=== PATIENT | male | born 1955 | race Caucasian/White ===

== ENCOUNTER 2016-09-04 21:32 | Emergency (ER) | END 2016-09-05 04:37 | disposition home or self-care (01) | DX: J20.9 Acute bronchitis, unspecified (principal); F17.210 Nicotine dependence, cigarettes, uncomplicated; N30.00 Acute cystitis without hematuria ==

== ENCOUNTER 2016-09-20 19:13 | Emergency (ER) | payer OTHER ==
[~2016-09-20] VITALS: Ht 182.9 cm; Wt 84.0 kg
[~2016-09-20 19:13] MED LIST: ACET500C5 PO; ALBU8.5H3 INH; BACTDS PO; CEPH-443 PO; CETI10CA PO; CLOT30CR24 TOP; GUAI120S26 PO; LEVO750T25 PO
[2016-09-20 19:50] VITALS: Ht 182.9 cm; Wt 84.0 kg
[2016-09-20 22:16] LABS: ADD UMIC YES; URINE BILIRUBIN (Dip) 2+ (NEGATIVE); URINE BLOOD (Dip) 3+ (NEGATIVE); URINE GLUCOSE (Dip) NEGATIVE (NEGATIVE); URINE KETONES (Dip) TRACE (NEGATIVE); URINE LEUKOCYTE ESTERASE (Dip) 2+ (NEGATIVE); URINE NITRITE (Dip) NEGATIVE (NEGATIVE); URINE TOTAL PROTEIN (Dip) 4+ (NEGATIVE); URINE UROBILINOGEN (Dip) 2.0 E.U./dL (0.1-1.0)
[2016-09-20 22:18] LABS: URINE COLOR RED (YELLOW)
[2016-09-20 22:22] LABS: ICTOTEST NEGATIVE (NEGATIVE); URINE RBCS >200 /HPF (0)
[2016-09-20 22:52] LABS: BASOPHILS % 0.3 % (0.0-2.0); EOSINOPHILS # 0.1 10^3/ul (0.0-0.5); EOSINOPHILS % 2.4 % (0.0-7.0); HEMATOCRIT 34.9 % (42.0-52.0); HEMOGLOBIN 11.7 g/dl (14.0-18.0); LYMPHOCYTES # 2.1 10^3/ul (0.8-2.9); LYMPHOCYTES % 35.7 % (15.0-51.0); MEAN CORPUSCULAR HEMOGLOBIN 30.5 pg (29.0-33.0); MEAN CORPUSCULAR HGB CONC 33.6 g/dl (32.0-37.0); MEAN PLATELET VOLUME 8.5 fl (7.4-10.4); MONOCYTE # 0.4 10^3/ul (0.3-0.9); MONOCYTES % 6.9 % (0.0-11.0); NEUTROPHIL # 3.2 10^3/ul (1.6-7.5); NEUTROPHILS % 54.7 % (39.0-77.0); PLATELET COUNT 189 10^3/UL (140-440); RED BLOOD COUNT 3.84 10^6/ul (4.70-6.10); RED CELL DISTRIBUTION WIDTH 13.8 % (11.5-14.5); UNCORRECTED WBC 5.9 10^3/ul (4.8-10.8); WHITE BLOOD COUNT 5.9 10^3/ul (4.8-10.8)
[2016-09-20 22:53] LABS: CONDITION 1
[2016-09-20 22:59] LABS: ALBUMIN 3.8 g/dl (3.3-4.9); POTASSIUM 3.6 mmol/L (3.5-5.1)
[2016-09-20 23:01] LABS: BILIRUBIN,INDIRECT 0.2 mg/dl (0-1.1); BILIRUBIN,TOTAL 0.2 mg/dl (0.2-1.3); CREATININE 1.09 mg/dl (0.61-1.24)
[2016-09-20 23:02] LABS: ALBUMIN/GLOBULIN RATIO 0.86; TOTAL PROTEIN 8.2 g/dl (6.1-8.1)
--- NOTE | 2016-09-20 23:21 | RADRPT ---
PROCEDURE: CT Abdomen and Pelvis without contrast CLINICAL INDICATION: Flank pain, hematuria TECHNIQUE: Transaxial images were obtained through the abdomen and pelvis on a multi-slice scanner without the intravenous contrast administration. No oral contrast had previously been given. Sagit aruna and coronal re-formations were subsequently reconstructed. One or more of the following dose reduction techniques were used: - Automated exposure control. - Adjustment of the mA and/or kV according to patient size. - Use of iterative reconstruction technique. Radiation dose: CTDIvol = 12.05 mGy; DLP = 676.25 mGy-cm. COMPARISON: No prior studies are available for comparison. FINDINGS: Lung bases: The visualized lung bases appear unremarkable. Liver: Normal in size and in attenuation. There is no focal lesion. Gallbladder: The wall is not thickened. No radiopaque stones are identified. Bile ducts: The intra and extrahepatic bile ducts are normal in caliber. Pancreas: Appears normal with no mass or inflammation evident. Spleen: The spleen is borderline enlarged. Adrenals: Normal with no mass identified. Kidneys, ureters and bladder: A double-J right ureteral stent is seen to be in place. There is mode rate right hydronephrosis and proximal hydroureter around the stent to the level of the lumbosacral junction for the ureter more distally is not dilated. There are several right nephroliths including 1 measuring 4 mm within a superior pole karly and several 2 mm nephroliths within mid pole calyces with a 1 cm nephrolith within the inferior pole karly. Within the right renal pelvis there is a 1.6 cm stone. The left kidney demonstrates no hydronephrosis but there is a 6 mm nonobstructing nephro lith within the inferior pole karly. The left ureter appears normal. The bladder appears unremarka ble. Reproductive organs: The prostate is not enlarged. Stomach and bowel: The stomach is distended with food debris. Multiple non organized mildly fluid d istended segments of small bowel are identified. There is no evidence of bowel obstruction or infla mmation. Appendix: The vermiform appendix is not discretely identified. Peritoneum: No free intraperitoneal fluid or air is identified. Aorta: There is atherosclerotic vascular calcification but no abdominal aortic aneurysm is evident. IVC: Unremarkable. Lymph nodes: No pathologically enlarged nodes are identified. Osseous structures: Degenerative spine changes are noted. There is a large Schmorl's node extending into the superior endplate of a S1 with anterior disk bulging and anterior spondylosis at this leve l. IMPRESSION: 1. Despite the presence of a double-J right ureteral stent, there is moderate right hydronephrosis and proximal hydroureter to the level of the lumbosacral junction. There are several right nephroli ths described above and there is a 1.6 cm stone within the right renal pelvis. No stone is seen at the caliber change within the distal right ureter at the lumbosacral junction level. 2. There is no hydronephrosis or hydroureter on the left but there is a 6 mm nonobstructing nephrol ith within the inferior pole of the left kidney. 3. The stomach is distended with food debris. There is a mild ileus but no evidence of bowel obstr uction or inflammation. The vermiform appendix is not discretely identified. 4. Borderline splenomegaly. 5. There is a large Schmorl's node involving the superior endplate of S1 with an anterior disk bulg e and with anterior spondylosis at this level. There is more diffuse anterior spondylosis through t he remaining spine. Physician Elizabeth Date Time Electronically viewed and signed by Physician Elizabeth on 09/20/2016 23:21 /
[2016-09-20] MEDS ORDERED: ACETAMINOPHEN 500 MG TAB PO STA (23:27)
[2016-09-20] MEDS ORDERED: CIPR500T4 PO (23:32)
[2016-09-20] MEDS ORDERED: HYDR-906 PO (23:32)
--- NOTE | 2016-09-20 23:32 | ERD ---
ER Documentation Chief Complaint Date/Time DATE: 09/20/16 TIME: 23:28 Chief Complaint blood in urine, vomiting , lower abd pain HPI This is a 61-year-old male presents to the emergency room for evaluation of blood in urine, and lower abdominal pain which he localizes to the right portion of his abdomen. The patient states that he has had some cramping and noticed dark blood for the past 5 days. He states that he was seen in a different hospital, was given an unknown antibiotic and was discharged. He states that he lost his prescription and came to the ER today for evaluation. ROS All systems reviewed and are negative except as per history of present illness. Medications Home Meds Discontinued Scripts Albuterol Sulfate* (Proair HFA*) 8.5 Gm Hfa.aer.ad, 2 PUFF INH Q4H Y for WHEEZING AND SOB, #1 INHALER Prov:MICHAELA PIERRE NP 09/05/16 Cetirizine Hcl* (Zyrtec*) 10 Mg Capsule, 10 MG PO DAILY, #30 TAB.CHEW Prov:MICHAELA PIERRE NP 09/05/16 Dugzxbfrlmj-J-Ksnrrdlnnm Hb* (Guaifenesin* DM Syrup) 120 Ml Syrup, 10 ML PO Q4H Y for COUGH, #120 ML Prov:MICHAELA PIERRE NP 09/05/16 Levofloxacin* (Levaquin*) 750 Mg Tablet, 750 MG PO DAILY for 5 Days, TAB Prov:MICHAELA PIERRE NP 09/05/16 Clotrimazole* (Clotrimazole* AF) 1% - 30 Gm Cream.gm., 1 APPLIC TOP BID for 7 Days, TUB Prov:MICHAELA PIERRE NP 02/15/16 Acetaminophen* (Tylophen*) 500 Mg Capsule, 1 CAP PO Q6H Y for PAIN AND OR ELEVATED TEMP, #20 CAP Prov:MICHAELA PIERRE NP 02/15/16 Sulfamethoxazole-Trimethoprim* (Bactrim* DS) 800-160 Mg Tab, 1 TAB PO BID for 10 Days, TAB Prov:MICHAELA PIERRE NP 02/15/16 Cephalexin* (Keflex*) 500 Mg Capsule, 500 MG PO QID for 10 Days, CAP Prov:MICHAELA PIERREJulita MARTIN 02/15/16 Allergies Allergies: Coded Allergies: No Known Allergy (Unverified , 09/20/16) PMhx/Soc History of Surgery: Yes (RIGHT FOOT) Anesthesia Reaction: No Hx Neurological Disorder: No Hx Respiratory Disorders: No Hx Cardiac Disorders: No Hx Psychiatric Problems: No Hx Miscellaneous Medical Probl: Yes (HIV) Hx Alcohol Use: No Hx Substance Use: Yes (HEROIN/METHADONE) Hx Tobacco Use: Yes Smoking Status: Current every day smoker Physical Exam Vitals Vital Signs Date Time Temp Pulse Resp B/P Pulse Ox O2 Delivery O2 Flow Rate FiO2 09/20/16 19:50 98.3 94 20 144/87 98 Physical Exam Const: Disheveled appearance, no acute distress Head: Atraumatic Eyes: Normal Conjunctiva ENT: Normal External Ears, Nose and Mouth. Neck: Full range of motion..~ No meningismus. Resp: Clear to auscultation bilaterally Cardio: Regular rate and rhythm, no murmurs Abd: Right-sided CVAT, soft, non tender, non distended. Normal bowel sounds Skin: No petechiae or rashes Back: No midline or flank tenderness Ext: No cyanosis, or edema Neur: Awake and alert Psych: Normal Mood and Affect Result Diagram: 09/20/16223809/20/162238 Results 24 hrs Laboratory Tests Test 09/20/16 21:42 09/20/16 22:39 Urine Bilirubin 2+ Urine Clarity TURBID Urine Color RED Urine Glucose NEGATIVE% Urine Hemoglobin 3+ Urine Ictotest NEGATIVE Urine Ketones TRACE Urine Leukocyte Esterase 2+ Urine Microscopic RBC >200/HPF Urine Microscopic WBC 5-10/HPF Urine Nitrite NEGATIVE Urine Specific [place] 1.020 Urine Total Protein 4+ Urine Urobilinogen 2.0 E.U./dL Urine pH 6.5 Alanine Aminotransferase (ALT/SGPT) 31IU/L Albumin 3.8g/dl Albumin/Globulin Ratio 0.86 Alkaline Phosphatase 106IU/L Anion Gap 19 Aspartate Amino Transf (AST/SGOT) 45IU/L Basophils # 0.010^3/ul Basophils % 0.3% Blood Urea Nitrogen 17mg/dl Calcium Level 9.0mg/dl Carbon Dioxide Level 22mmol/L Chloride Level 105mmol/L Creatinine 1.09mg/dl Direct Bilirubin 0.00mg/dl Eosinophils # 0.110^3/ul Eosinophils % 2.4% Globulin 4.40g/dl Glucose Level 90mg/dl Hematocrit 34.9% Hemoglobin 11.7g/dl Indirect Bilirubin 0.2mg/dl Lipase 40U/L Lymphocytes # 2.110^3/ul Lymphocytes % 35.7% Mean Corpuscular Hemoglobin 30.5pg Mean Corpuscular Hemoglobin Concent 33.6g/dl Mean Corpuscular Volume 91.0fl Mean Platelet Volume 8.5fl Monocytes # 0.410^3/ul Monocytes % 6.9% Neutrophils # 3.210^3/ul Neutrophils % 54.7% Nucleated Red Blood Cells # 0.010^3/ul Nucleated Red Blood Cells % 0.0/100WBC Platelet Count 02629^3/UL Potassium Level 3.6mmol/L Red Blood Count 3.8410^6/ul Red Cell Distribution Width 13.8% Sodium Level 142mmol/L Total Bilirubin 0.2mg/dl Total Protein 8.2g/dl White Blood Count 5.910^3/ul Procedures/MDM CT abdomen pelvis without: 1. Despite the presence of a double-J right ureteral stent, there is moderate right hydronephrosis and proximal hydroureter to the level of the lumbosacral junction. There are several right nephroliths described above and there is a 1.6 cm stone within the right renal pelvis. No stone is seen at the caliber change within the distal right ureter at the lumbosacral junction level. 2. There is no hydronephrosis or hydroureter on the left but there is a 6 mm nonobstructing nephrolith within the inferior pole of the left kidney. 3. The stomach is distended with food debris. There is a mild ileus but no evidence of bowel obstruction or inflammation. The vermiform appendix is not discretely identified. 4. Borderline splenomegaly. 5. There is a large Schmorl's node involving the superior endplate of S1 with an anterior disk bulge and with anterior spondylosis at this level. There is more diffuse anterior spondylosis through the remaining spine This 61-year-old male presents to the ER for evaluation of abdominal pain, blood in his urine. When I evaluated him he did have mild pain on the right flank. Did obtain lab work and a urinalysis which does show gross hematuria. CT of the abdomen pelvis was obtained and it does show that the patient has a double-J ureteral stent with moderate hydronephrosis and a 1.6 cm stone in the right renal pelvis. I asked this patient about the stent and he stated that he "forgot to tell me he has one". The patient states that he is following up with a urologist at [facility], Dr. Jesus and is scheduled for possible stent removal in 2 weeks. The patient has no elevations in his creatinine. He is urinating without difficulty. He will be discharged home with a prescription for ciprofloxacin, and [place] for breakthrough pain and urology referral in case she is unable to see the urologist at [facility] Diagnosis: Primary Impression: Right flank pain, chronic Additional Impressions: Hematuria Hydronephrosis Normocytic anemia Condition: Stable ROGER CONTEH DO Sep 20, 2016 23:31
[2016-09-20] MEDS ORDERED: ONDA4TAB8 PO (23:50)
[2016-09-20 23:53] VITALS: BP 148/82; PULSE 79; RESP 16; TEMP 98.9
[2016-09-21] MEDS ORDERED: ONDA4TAB8 PO (22:58)
[2016-09-21] MEDS ORDERED: OXYC-279 PO (22:58)
[2016-09-21] MEDS ORDERED: ZOLP5TAB PO (22:58)
== END 2016-09-20 23:55 | disposition home or self-care (01) ==
LOC: E/R 19:13
DX: R10.31 Right lower quadrant pain (principal); R31.9 Hematuria, unspecified; N13.30 Unspecified hydronephrosis; D64.9 Anemia, unspecified; F17.210 Nicotine dependence, cigarettes, uncomplicated
CPT/HCPCS: 74176; 80053; 81001; 83690; 85025; Z7502; Z7610; 81003

== ENCOUNTER 2016-09-21 18:15 | Emergency (ER) | payer OTHER ==
[~2016-09-21] VITALS: Ht 182.9 cm; Wt 80.0 kg
[~2016-09-21 18:15] MED LIST changes: -ACET500C5 PO; -ALBU8.5H3 INH; -BACTDS PO; -CEPH-443 PO; -CETI10CA PO; +CIPR500T4 PO; -CLOT30CR24 TOP; -GUAI120S26 PO; +HYDR-906 PO; -LEVO750T25 PO; +ONDA4TAB8 PO
[2016-09-21 18:20] VITALS: Ht 182.9 cm; Wt 80.0 kg
[2016-09-21] MEDS ORDERED: ONDANSETRON 4 MG INJ IV STA ×2 (20:48→20:50)
[2016-09-21] MEDS ORDERED: SOD CHLORIDE 0.9% 1,000 ML IV ONE (21:00)
[2016-09-21] MEDS ORDERED: morphine 10 MG INJ IV ONE (21:00)
--- NOTE | 2016-09-21 21:20 | ERD ---
ER Documentation Chief Complaint Date/Time DATE: 09/21/16 TIME: 21:18 Chief Complaint Complains of blood in the urine and pain when urinating HPI This is an 61-year-old male that presents to the ER with flank pain and blood in his urine. Patient was seen last night and was diagnosed with kidney stones. Patient has a history of kidney stones. Patient states the pain is severe and constant. He tried [place] that was given to him yesterday however does not work. Patient currently takes methadone for breakthrough chronic pain. Patient denies any fevers or chills. He does admit to nausea and vomiting. Vomiting is nonbilious nonbloody. ROS 12 point review of systems was done, all negative except per HPI. Medications Home Meds Active Scripts Ondansetron Hcl* (Zofran*) 4 Mg Tablet, 4 MG PO Q6H for NAUSEA AND/OR VOMITING, #30 TAB Prov:RAZ SHARP 09/21/16 Zolpidem Tartrate* (Ambien*) 5 Mg Tablet, 5 MG PO HS Y for INSOMNIA, #10 TAB Prov:RAZ SHARP 09/21/16 Oxycodone HCl/Acetaminophen (Percocet 5-325 mg Tablet) 1 Each Tablet, 1 EACH PO Q6, #10 TAB Prov:RAZ SHARP 09/21/16 Ondansetron Hcl* (Zofran*) 4 Mg Tablet, 4 MG PO Q8H Y for NAUSEA AND/OR VOMITING , #15 TAB Prov:ROGER CONTEH DO 09/20/16 Hydrocodone/Acetaminophen ([place] 5-325 Tablet) 1 Each Tablet, 1 EACH PO Q8, #10 TAB Prov:ROGER CONTEH DO 09/20/16 Ciprofloxacin Hcl* (Ciprofloxacin Hcl*) 500 Mg Tablet, 500 MG PO BID, #14 TAB Prov:ROGER CONTEH DO 09/20/16 Discontinued Scripts Albuterol Sulfate* (Proair HFA*) 8.5 Gm Hfa.aer.ad, 2 PUFF INH Q4H Y for WHEEZING AND SOB, #1 INHALER Prov:MICHAELA PIERRE NURSING CARE ATTENDANT 09/05/16 Cetirizine Hcl* (Zyrtec*) 10 Mg Capsule, 10 MG PO DAILY, #30 TAB.CHEW Prov:MICHAELA PIERRE NP 09/05/16 Flsxeourwrd-W-Memwylqzvr Hb* (Guaifenesin* DM Syrup) 120 Ml Syrup, 10 ML PO Q4H Y for COUGH, #120 ML Prov:MICHAELA PIERRE NP 09/05/16 Levofloxacin* (Levaquin*) 750 Mg Tablet, 750 MG PO DAILY for 5 Days, TAB Prov:MICHAELA PIERRE NP 09/05/16 Clotrimazole* (Clotrimazole* AF) 1% - 30 Gm Cream.gm., 1 APPLIC TOP BID for 7 Days, TUB Prov:MICHAELA PIERRE NP 02/15/16 Acetaminophen* (Tylophen*) 500 Mg Capsule, 1 CAP PO Q6H Y for PAIN AND OR ELEVATED TEMP, #20 CAP Prov:MICHAELA PIERRE NP 02/15/16 Sulfamethoxazole-Trimethoprim* (Bactrim* DS) 800-160 Mg Tab, 1 TAB PO BID for 10 Days, TAB Prov:MICHAELA PIERRE NP 02/15/16 Cephalexin* (Keflex*) 500 Mg Capsule, 500 MG PO QID for 10 Days, CAP Prov:MICHAELA PIERRE NP 02/15/16 Allergies Allergies: Coded Allergies: No Known Allergy (Unverified , 09/20/16) PMhx/Soc History of Surgery: Yes (RIGHT FOOT) Anesthesia Reaction: No Hx Neurological Disorder: No Hx Respiratory Disorders: No Hx Cardiac Disorders: No Hx Psychiatric Problems: No Hx Miscellaneous Medical Probl: Yes (HIV) Hx Alcohol Use: No Hx Substance Use: Yes (HEROIN/METHADONE) Hx Tobacco Use: Yes Smoking Status: Current every day smoker Physical Exam Vitals Vital Signs Date Time Temp Pulse Resp B/P Pulse Ox O2 Delivery O2 Flow Rate FiO2 09/21/16 18:20 98.3 92 20 129/85 98 Physical Exam GENERAL: The patient is well developed and appropriate for usual state of health , in no apparent distress. HEENT: Atraumatic. CHEST: Clear to auscultation bilaterally. There are no rales, wheezes or rhonchi. HEART: Regular rate and rhythm. No murmurs, clicks, rubs or gallops. ABDOMEN: Soft, nontender and nondistended. Good bowel sounds. No rebound or guarding. No gross peritonitis. No gross organomegaly or masses. No Ayon sign or McBurney point tenderness. BACK: No midline or flank tenderness. EXTREMITIES: Full range of motion. Grossly neurovascularly intact. NEURO: Alert and oriented. SKIN: The skin is warm and dry. Result Diagram: 09/21/16222909/21/162119 Results 24 hrs Laboratory Tests Test 09/21/16 21:20 09/21/16 21:38 09/21/16 22:30 Alanine Aminotransferase (ALT/SGPT) 34IU/L Albumin 4.0g/dl Albumin/Globulin Ratio 0.88 Alkaline Phosphatase 112IU/L Anion Gap 18 Aspartate Amino Transf (AST/SGOT) 51IU/L Blood Urea Nitrogen 15mg/dl Calcium Level 9.4mg/dl Carbon Dioxide Level 22mmol/L Chloride Level 104mmol/L Creatinine 1.25mg/dl Direct Bilirubin 0.00mg/dl Globulin 4.50g/dl Glucose Level 93mg/dl Indirect Bilirubin 0.2mg/dl Potassium Level 3.9mmol/L Sodium Level 140mmol/L Total Bilirubin 0.2mg/dl Total Protein 8.5g/dl Urine Bacteria FEW Urine Bilirubin NEGATIVE Urine Clarity BLOODY Urine Color RED Urine Glucose NEGATIVE% Urine Hemoglobin 3+ Urine Ketones TRACE Urine Leukocyte Esterase 1+ Urine Microscopic RBC >200/HPF Urine Microscopic WBC >50/HPF Urine Nitrite NEGATIVE Urine Specific [place] 1.025 Urine Total Protein 2+ Urine Urobilinogen 1.0 E.U./dL Urine pH 6.0 Basophils # 0.010^3/ul Basophils % 0.2% Eosinophils # 0.210^3/ul Eosinophils % 4.7% Hematocrit 31.8% Hemoglobin 10.9g/dl Lymphocytes # 1.510^3/ul Lymphocytes % 35.5% Mean Corpuscular Hemoglobin 30.6pg Mean Corpuscular Hemoglobin Concent 34.3g/dl Mean Corpuscular Volume 89.3fl Mean Platelet Volume 10.1fl Monocytes # 0.510^3/ul Monocytes % 11.5% Neutrophils # 1.910^3/ul Neutrophils % 47.6% Nucleated Red Blood Cells # 0.010^3/ul Nucleated Red Blood Cells % 0.0/100WBC Platelet Count 61690^3/UL Red Blood Count 3.5610^6/ul Red Cell Distribution Width 13.3% White Blood Count 4.110^3/ul Current Medications Medications (Trade) Dose Ordered Sig/Singh Route PRN Reason Start Time Stop Time Status Last Admin Dose Admin Morphine Sulfate (morphine) 6 mg ONCE ONCE IV 09/21/16 21:00 09/21/16 21:01 DC 09/21/16 21:32 Ondansetron HCl 4 mg 4 mg ONCE STAT IV 09/21/16 20:48 09/21/16 20:51 DC 09/21/16 21:32 Sodium Chloride (NS) 1,000 ml @ 1,000 mls/hr Q1H ONCE IV 09/21/16 21:00 09/21/16 21:59 DC 09/21/16 21:32 Ondansetron HCl (Zofran Inj) 4 mg ONCE STAT IV 09/21/16 20:50 09/21/16 20:51 DC Ciprofloxacin (Cipro) 500 mg ONCE ONCE PO 09/21/16 23:30 09/21/16 23:31 Procedures/MDM This is a 61-year-old male that presents to the ER with blood in his urine. Patient was here yesterday and was diagnosed with kidney stones. At this time I did not feel that CT scan was necessary as CT scan was done yesterday. Patient does not have an elevation in his white blood cell count he is afebrile and well-appearing. Patient has not had any fevers or chills at home. I doubt septic or obstructive stone. Patient was given a dose of Cipro here in the ER, he was told to fill his medication to start his Cipro for his urinary tract infection. I discussed his case with Dr. Stallings and she agrees with my medical decision making. Patient at this time is well-appearing. He needs to start his antibiotics. He also needs to follow-up with his urologist. Patient was counseled on the importance of taking medication safely. I told him to discontinue [place] if he decides to take Percocet. Also advised him to not take Ambien and Percocet together as it can cause extreme dizziness and I did not want him to fall or injure himself. Patient verbalizes understanding and and agrees with plan. Patient is to follow-up with his primary care doctor within 1 -2 days or return to ER sooner if symptoms worsen. Departure Diagnosis: Primary Impression: Kidney stones Condition: Stable RAZ SHARP Sep 21, 2016 21:20
[2016-09-21 21:49] LABS: ADD SCAN DIFF NO
[2016-09-21 22:02] LABS: ADD UMIC YES; URINE BILIRUBIN (Dip) NEGATIVE (NEGATIVE); URINE BLOOD (Dip) 3+ (NEGATIVE); URINE GLUCOSE (Dip) NEGATIVE (NEGATIVE); URINE KETONES (Dip) TRACE (NEGATIVE); URINE LEUKOCYTE ESTERASE (Dip) 1+ (NEGATIVE); URINE NITRITE (Dip) NEGATIVE (NEGATIVE); URINE TOTAL PROTEIN (Dip) 2+ (NEGATIVE); URINE UROBILINOGEN (Dip) 1.0 E.U./dL (0.1-1.0)
[2016-09-21 22:02] LABS: POTASSIUM 3.9 mmol/L (3.5-5.1)
[2016-09-21 22:04] LABS: ALBUMIN/GLOBULIN RATIO 0.88; BILIRUBIN,INDIRECT 0.2 mg/dl (0-1.1); BILIRUBIN,TOTAL 0.2 mg/dl (0.2-1.3); CREATININE 1.25 mg/dl (0.61-1.24); TOTAL PROTEIN 8.5 g/dl (6.1-8.1)
[2016-09-21 22:05] LABS: CALCIUM 9.4 mg/dl (8.4-10.2)
[2016-09-21 22:06] LABS: URINE COLOR RED (YELLOW)
[2016-09-21 22:07] LABS: BACTERIA,URINE FEW; URINE RBCS >200 /HPF (0)
[2016-09-21 22:43] LABS: BASOPHILS % 0.2 % (0.0-2.0); EOSINOPHILS # 0.2 10^3/ul (0.0-0.5); EOSINOPHILS % 4.7 % (0.0-7.0); HEMATOCRIT 31.8 % (42.0-52.0); HEMOGLOBIN 10.9 g/dl (14.0-18.0); LYMPHOCYTES # 1.5 10^3/ul (0.8-2.9); LYMPHOCYTES % 35.5 % (15.0-51.0); MEAN CORPUSCULAR HEMOGLOBIN 30.6 pg (29.0-33.0); MEAN CORPUSCULAR HGB CONC 34.3 g/dl (32.0-37.0); MEAN CORPUSCULAR VOLUME 89.3 fl (82.0-101.0); MEAN PLATELET VOLUME 10.1 fl (7.4-10.4); MONOCYTE # 0.5 10^3/ul (0.3-0.9); MONOCYTES % 11.5 % (0.0-11.0); NEUTROPHIL # 1.9 10^3/ul (1.6-7.5); NEUTROPHILS % 47.6 % (39.0-77.0); PLATELET COUNT 162 10^3/UL (140-415); RED BLOOD COUNT 3.56 10^6/ul (4.70-6.10); RED CELL DISTRIBUTION WIDTH 13.3 % (11.5-14.5); WHITE BLOOD COUNT 4.1 10^3/ul (4.8-10.8)
[2016-09-21] MEDS ORDERED: ONDA4TAB8 PO (22:58)
[2016-09-21] MEDS ORDERED: OXYC-279 PO (22:58)
[2016-09-21] MEDS ORDERED: ZOLP5TAB PO (22:58)
[2016-09-21 23:27] VITALS: BP 129/72; PULSE 75; RESP 18; TEMP 98.1
[2016-09-21] MEDS ORDERED: CIPROFLOXACIN 500 MG TAB PO ONE (23:30)
[2016-09-22] MEDS ORDERED: ONDA4TAB14 PO (22:14)
[2016-09-22] MEDS ORDERED: HYDR-902 PO (22:14)
== END 2016-09-21 23:27 | disposition home or self-care (01) ==
LOC: FTE 18:15
DX: N20.0 Calculus of kidney (principal); R11.2 Nausea with vomiting, unspecified; F17.210 Nicotine dependence, cigarettes, uncomplicated
CPT/HCPCS: 36415; 80053; 81001; 85025; 96361; 96374; 96375; J2270; J2405; J7030; Z7502; Z7610; 81003

== ENCOUNTER 2016-09-22 17:36 | Emergency (ER) | payer OTHER ==
[~2016-09-22] VITALS: Wt 80.5 kg
[~2016-09-22 17:36] MED LIST changes: +OXYC-279 PO; +ZOLP5TAB PO
[2016-09-22] MEDS ORDERED: SOD CHLORIDE 0.9% 1,000 ML IV STA (17:52)
[2016-09-22] MEDS ORDERED: ONDANSETRON 4 MG INJ IV STA (17:52)
[2016-09-22] MEDS ORDERED: HYDROmorphONE 1 MG/ML SYG IV STA (17:52)
--- NOTE | 2016-09-22 18:02 | ERA ---
ER Documentation Chief Complaint Date/Time DATE: 09/22/16 TIME: 18:00 Chief Complaint FLANK PAIN X 1 WEEK HPI Very pleasant 61-year-old male who presents with right flank pain for approximately 1 week. He describes now constant, severe flank pain that is nonradiating. The patient has recently been diagnosed with kidney stones. His symptoms are not improved. He presents now for the third day in a row for persistent pain. He denies any fevers or chills. No chest pain, no right lower quadrant abdominal pain. ROS All systems reviewed and are negative except as per history of present illness. Medications Home Meds Active Scripts Ondansetron (Ondansetron Odt) 4 Mg Tab.rapdis, 4 MG PO Q6H Y for NAUSEA AND/OR VOMITING, #10 TAB Prov:SWATI SINGH MD 09/22/16 Hydrocodone/Acetaminophen ([place] 10-325 Tablet) 1 Each Tablet, 1 TAB PO Q6H Y for PAIN, #12 TAB Prov:SWATI SINGH MD 09/22/16 Ondansetron Hcl* (Zofran*) 4 Mg Tablet, 4 MG PO Q6H for NAUSEA AND/OR VOMITING, #30 TAB Prov:RAZ SHARP 09/21/16 Zolpidem Tartrate* (Ambien*) 5 Mg Tablet, 5 MG PO HS Y for INSOMNIA, #10 TAB Prov:RAZ SHARP 09/21/16 Oxycodone HCl/Acetaminophen (Percocet 5-325 mg Tablet) 1 Each Tablet, 1 EACH PO Q6, #10 TAB Prov:RAZ SHARP 09/21/16 Hydrocodone/Acetaminophen ([place] 5-325 Tablet) 1 Each Tablet, 1 EACH PO Q8, #10 TAB Prov:ROGER CONTEH DO 09/20/16 Ciprofloxacin Hcl* (Ciprofloxacin Hcl*) 500 Mg Tablet, 500 MG PO BID, #14 TAB Prov:ROGER CONTEH DO 09/20/16 Discontinued Scripts Ondansetron Hcl* (Zofran*) 4 Mg Tablet, 4 MG PO Q8H Y for NAUSEA AND/OR VOMITING , #15 TAB Prov:ROGER CONTEH DO 09/20/16 Albuterol Sulfate* (Proair HFA*) 8.5 Gm Hfa.aer.ad, 2 PUFF INH Q4H Y for WHEEZING AND SOB, #1 INHALER Prov:MICHAELA PIERRE NP 09/05/16 Cetirizine Hcl* (Zyrtec*) 10 Mg Capsule, 10 MG PO DAILY, #30 TAB.CHEW Prov:MICHAELA PIERRE [employer] 09/05/16 Bfvwomeoskf-A-Dzoriukemc Hb* (Guaifenesin* DM Syrup) 120 Ml Syrup, 10 ML PO Q4H Y for COUGH, #120 ML Prov:MICHAELA PIERRE [employer] 09/05/16 Levofloxacin* (Levaquin*) 750 Mg Tablet, 750 MG PO DAILY for 5 Days, TAB Prov:MICHAELA PIERRE [employer]CH[employer] 09/05/16 Clotrimazole* (Clotrimazole* AF) 1% - 30 Gm Cream.gm., 1 APPLIC TOP BID for 7 Days, TUB Prov:MICHAELA PIERRE NP 02/15/16 Acetaminophen* (Tylophen*) 500 Mg Capsule, 1 CAP PO Q6H Y for PAIN AND OR ELEVATED TEMP, #20 CAP Prov:MICHAELA PIERRE NP 02/15/16 Sulfamethoxazole-Trimethoprim* (Bactrim* DS) 800-160 Mg Tab, 1 TAB PO BID for 10 Days, TAB Prov:MICHAELA PIERRE NP 02/15/16 Cephalexin* (Keflex*) 500 Mg Capsule, 500 MG PO QID for 10 Days, CAP Prov:MICHAELA PIERRE NP 02/15/16 Allergies Allergies: Coded Allergies: No Known Allergy (Unverified , 09/22/16) PMhx/Soc History of Surgery: Yes (RIGHT FOOT) Anesthesia Reaction: No Hx Neurological Disorder: No Hx Respiratory Disorders: No Hx Cardiac Disorders: No Hx Psychiatric Problems: No Hx Miscellaneous Medical Probl: Yes (HIV) Hx Alcohol Use: No Hx Substance Use: Yes (HEROIN/METHADONE) Hx Tobacco Use: Yes FmHx Family History: No diabetes Physical Exam Vitals Vital Signs Date Time Temp Pulse Resp B/P Pulse Ox O2 Delivery O2 Flow Rate FiO2 09/22/16 20:10 102 18 119/60 100 Room Air 09/22/16 19:45 87 20 127/76 100 Room Air 09/22/16 17:40 98.0 88 18 144/89 99 Physical Exam General: Well developed, well nourished, uncomfortable Head: Normocephalic, atraumatic. Eyes: Pupils equally reactive, EOM intact ENT: Moist mucous membranes Neck: Supple, no lymphadenopathy Respiratory: Lungs clear bilaterally, no distress Cardiovascular: RRR, no murmurs, rubs, or gallops Abdominal: Soft, non-tender, non-distended, no peritoneal signs : Deferred Back: Mild CVA tenderness to the right MSK: No edema, no unilateral swelling, 5/5 strength Neurologic: Alert and oriented, moving all extremities, normal speech, no focal weakness, no cerebellar signs Skin: No rash Psych: Normal mood Result Diagram: 09/22/16182109/22/161821 Results 24 hrs Laboratory Tests Test 09/22/16 18:22 09/22/16 19:30 Activated Partial Thromboplast Time 27.0Sec Anion Gap 20 Basophils # 0.010^3/ul Basophils % 0.2% Blood Urea Nitrogen 15mg/dl Calcium Level 9.2mg/dl Carbon Dioxide Level 21mmol/L Chloride Level 106mmol/L Creatinine 1.15mg/dl Eosinophils # 0.210^3/ul Eosinophils % 3.6% Glucose Level 91mg/dl Hematocrit 35.0% Hemoglobin 11.7g/dl INR International Normalized Ratio 1.05 Lymphocytes # 1.310^3/ul Lymphocytes % 29.8% Mean Corpuscular Hemoglobin 30.3pg Mean Corpuscular Hemoglobin Concent 33.4g/dl Mean Corpuscular Volume 90.7fl Mean Platelet Volume 10.5fl Monocytes # 0.410^3/ul Monocytes % 9.8% Neutrophils # 2.410^3/ul Neutrophils % 56.1% Nucleated Red Blood Cells # 0.010^3/ul Nucleated Red Blood Cells % 0.0/100WBC Platelet Count 63580^3/UL Potassium Level 3.6mmol/L Prothrombin Time 13.7Sec Prothrombin Time Ratio 1.1 Red Blood Count 3.8610^6/ul Red Cell Distribution Width 13.8% Sodium Level 143mmol/L White Blood Count 4.210^3/ul Urine Bacteria FEW Urine Bilirubin 1+ Urine Clarity BLOODY Urine Color RED Urine Glucose NEGATIVE% Urine Hemoglobin 3+ Urine Ictotest NEGATIVE Urine Ketones TRACE Urine Leukocyte Esterase 2+ Urine Microscopic RBC >200/HPF Urine Microscopic WBC 10-25/HPF Urine Nitrite NEGATIVE Urine Specific [place] 1.025 Urine Total Protein 2+ Urine Urobilinogen 1.0 E.U./dL Urine pH 5.5 Current Medications Medications (Trade) Dose Ordered Sig/Singh Route PRN Reason Start Time Stop Time Status Last Admin Dose Admin Sodium Chloride (NS) 1,000 ml @ 1,000 mls/hr Q1H STAT IV 09/22/16 17:52 09/22/16 18:51 DC 09/22/16 19:51 Hydromorphone HCl (Dilaudid) 1 mg ONCE STAT IV 09/22/16 17:52 09/22/16 17:53 DC 09/22/16 19:55 Ondansetron HCl (Zofran Inj) 4 mg ONCE STAT IV 09/22/16 17:52 09/22/16 17:53 DC 09/22/16 19:55 Procedures/MDM EKG, MONITORS, & DIAGNOSTIC IMAGING: CT from 2 days ago IMPRESSION: 1. Despite the presence of a double-J right ureteral stent, there is moderate right hydronephrosis and proximal hydroureter to the level of the lumbosacral junction. There are several right nephroliths described above and there is a 1.6 cm stone within the right renal pelvis. No stone is seen at the caliber change within the distal right ureter at the lumbosacral junction level. 2. There is no hydronephrosis or hydroureter on the left but there is a 6 mm nonobstructing nephrolith within the inferior pole of the left kidney. 3. The stomach is distended with food debris. There is a mild ileus but no evidence of bowel obstruction or inflammation. The vermiform appendix is not discretely identified. 4. Borderline splenomegaly. 5. There is a large Schmorl's node involving the superior endplate of S1 with an anterior disk bulge and with anterior spondylosis at this level. There is more diffuse anterior spondylosis through the remaining spine. LAB INTERPRETATION: No significant leukocytosis. No evidence of renal failure. MEDICAL DECISION MAKING: The patient is evidence of hydronephrosis secondary to a blocked ureteral stent. The patient will likely require stent retrieval, replacement of stent and/or lithotripsy. The patient did have a possible UTI but no urine culture was sent. No fever no leukocytosis therefore less likely. The patient is currently taking Cipro. The patient will benefit from pain control, urology consultation in anticipation for inpatient hospitalization. ER COURSE: The patient's pain is improving. I was able to speak to my urologist, we reviewed the diagnostic imaging and the patient's presentation. He feels that the patient requires a complex surgery and cannot provide this surgical intervention here at my hospital. He recommends transfer. I have attempted multiple sites of transfer including [place], where the patient had his surgery. We also reached out to [facility] unfortunately there is no availability at [facility], [facility]. I will also try [facility]. I will continue to try and find placement for this patient. He was informed that this may take several hours if not days. We are still unable to find placement for this patient. He has become frustrated which I understand. He states that his primary care physician is arranging for her urologist but not for another 6 days. I do not believe that the patient requires emergent surgery however I recommended staying to assist with transfer. The patient would like to leave the emergency room. I stated understanding. I provided outpatient referral information to urology as well as recommended that he may benefit from following up back at [place] as this is where he had his surgery. The patient states understanding and is asking for refill of [place] which seems reasonable. The patient will be discharged from the emergency room I kept the patient and/or family informed of laboratory and diagnostic imaging results throughout the emergency room course. DISPOSITION PLAN: We discussed follow up with the patient's primary care doctor within 24 to 48 hours as needed. We also discussed return to the emergency room for worsening symptoms or worsening condition. Discharge Medications: [place], Zofran We discussed the use of narcotics including avoidance of operating heavy machinery and driving as well as its addictive properties. Departure Diagnosis: Primary Impression: Hydronephrosis Qualified Code: N13.2 - Hydronephrosis with urinary obstruction due to renal calculus Additional Impressions: Ureteral stent retained Ureterolithiasis Condition: Stable SWATI SINGH MD Sep 22, 2016 18:02
[2016-09-22 18:29] LABS: ADD SCAN DIFF NO
[2016-09-22 18:40] LABS: POTASSIUM 3.6 mmol/L (3.5-5.1)
[2016-09-22 18:41] LABS: PT RATIO 1.1
[2016-09-22 18:42] LABS: CREATININE 1.15 mg/dl (0.61-1.24)
[2016-09-22 18:43] LABS: BASOPHILS % 0.2 % (0.0-2.0); CALCIUM 9.2 mg/dl (8.4-10.2); EOSINOPHILS # 0.2 10^3/ul (0.0-0.5); EOSINOPHILS % 3.6 % (0.0-7.0); HEMOGLOBIN 11.7 g/dl (14.0-18.0); LYMPHOCYTES # 1.3 10^3/ul (0.8-2.9); LYMPHOCYTES % 29.8 % (15.0-51.0); MEAN CORPUSCULAR HEMOGLOBIN 30.3 pg (29.0-33.0); MEAN CORPUSCULAR HGB CONC 33.4 g/dl (32.0-37.0); MEAN CORPUSCULAR VOLUME 90.7 fl (82.0-101.0); MEAN PLATELET VOLUME 10.5 fl (7.4-10.4); MONOCYTE # 0.4 10^3/ul (0.3-0.9); MONOCYTES % 9.8 % (0.0-11.0); NEUTROPHIL # 2.4 10^3/ul (1.6-7.5); NEUTROPHILS % 56.1 % (39.0-77.0); PLATELET COUNT 179 10^3/UL (140-415); RED BLOOD COUNT 3.86 10^6/ul (4.70-6.10); RED CELL DISTRIBUTION WIDTH 13.8 % (11.5-14.5); WHITE BLOOD COUNT 4.2 10^3/ul (4.8-10.8)
[2016-09-22 19:39] LABS: ADD UMIC YES; URINE BILIRUBIN (Dip) 1+ (NEGATIVE); URINE BLOOD (Dip) 3+ (NEGATIVE); URINE GLUCOSE (Dip) NEGATIVE (NEGATIVE); URINE KETONES (Dip) TRACE (NEGATIVE); URINE LEUKOCYTE ESTERASE (Dip) 2+ (NEGATIVE); URINE NITRITE (Dip) NEGATIVE (NEGATIVE); URINE TOTAL PROTEIN (Dip) 2+ (NEGATIVE); URINE UROBILINOGEN (Dip) 1.0 E.U./dL (0.1-1.0)
[2016-09-22 19:54] LABS: INR 1.05; PROTIME 13.7 Sec (12.2-14.2)
[2016-09-22 19:56] LABS: URINE COLOR RED (YELLOW)
[2016-09-22 19:57] LABS: ICTOTEST NEGATIVE (NEGATIVE)
[2016-09-22 20:03] LABS: BACTERIA,URINE FEW; URINE RBCS >200 /HPF (0)
[2016-09-22 20:10] VITALS: BP 119/60; PULSE 102; RESP 18
[2016-09-22] MEDS ORDERED: HYDR-902 PO (22:14)
[2016-09-22] MEDS ORDERED: ONDA4TAB14 PO (22:14)
== END 2016-09-22 23:21 | disposition home or self-care (01) ==
LOC: E/R 17:36
DX: N13.2 Hydronephrosis with renal and ureteral calculous obstruction (principal); Z96.0 Presence of urogenital implants
CPT/HCPCS: 80048; 81001; 81003; 85025; 85610; 85730; 87086; J1170; J2405; J7030; 36415; 96374; 96375

== ENCOUNTER 2016-12-29 13:47 | Emergency (ER) | payer OTHER ==
[~2016-12-29] VITALS: Ht 182.9 cm; Wt 81.5 kg
[~2016-12-29 13:47] MED LIST changes: +HYDR-902 PO; +ONDA4TAB14 PO
[2016-12-29 14:01] VITALS: Ht 182.9 cm; Wt 81.5 kg
--- NOTE | 2016-12-29 15:08 | ERD ---
ER Documentation Chief Complaint Date/Time DATE: 12/29/16 TIME: 15:07 Chief Complaint NEEDS WOUND SITE DRESSING CHANGED 1WK LAST CHANGED HPI This 7-year-old male presents with request for dressing change on right kidney stent. Denies any fevers, vomiting, shortness of the chest pain. He states that his symptoms of fatigue and flank pain are stable. Apparently has some large kidney stones is waiting for definitive treatment and is under the care of urology at [facility]. Patient has no new complaints. He was only requesting dressing change. ROS All systems reviewed and are negative except as per history of present illness. Medications Home Meds Active Scripts Ondansetron (Ondansetron Odt) 4 Mg Tab.rapdis, 4 MG PO Q6H Y for NAUSEA AND/OR VOMITING, #10 TAB Prov:SWATI SINGH MD 09/22/16 Hydrocodone/Acetaminophen ([place] 10-325 Tablet) 1 Each Tablet, 1 TAB PO Q6H Y for PAIN, #12 TAB Prov:SWATI SINGH MD 09/22/16 Ondansetron Hcl* (Zofran*) 4 Mg Tablet, 4 MG PO Q6H for NAUSEA AND/OR VOMITING, #30 TAB Prov:RAZ SHARP C 09/21/16 Zolpidem Tartrate* (Ambien*) 5 Mg Tablet, 5 MG PO HS Y for INSOMNIA, #10 TAB Prov:RAZ SHARP C 09/21/16 Oxycodone HCl/Acetaminophen (Percocet 5-325 mg Tablet) 1 Each Tablet, 1 EACH PO Q6, #10 TAB Prov:RAZ SHARP C 09/21/16 Hydrocodone/Acetaminophen ([place] 5-325 Tablet) 1 Each Tablet, 1 EACH PO Q8, #10 TAB Prov:ROGER CONTEH DO 09/20/16 Ciprofloxacin Hcl* (Ciprofloxacin Hcl*) 500 Mg Tablet, 500 MG PO BID, #14 TAB Prov:ROGER CONTEH DO 09/20/16 Allergies Allergies: Coded Allergies: No Known Allergy (Unverified , 09/22/16) PMhx/Soc History of Surgery: Yes (Nephrostomy) Anesthesia Reaction: No Hx Neurological Disorder: No Hx Respiratory Disorders: No Hx Cardiac Disorders: No Hx Psychiatric Problems: No Hx Miscellaneous Medical Probl: Yes (Hx of Osteomyelitis, HIV, Renal Stones requiring nephrostomy, Hep C, DMII) Hx Alcohol Use: Yes Hx Substance Use: Yes (Hx of heroin, cocaine, crystal meth, and marijuana use. No longer using.) Hx Tobacco Use: Yes Smoking Status: Current some day smoker Physical Exam Vitals Vital Signs Date Time Temp Pulse Resp B/P Pulse Ox O2 Delivery O2 Flow Rate FiO2 12/29/16 14:01 99.8 85 20 117/70 100 Physical Exam Const: [] Alert, not ill-appearing Head: Atraumatic Eyes: Normal Conjunctiva ENT: Normal External Ears, Nose and Mouth. Neck: Full range of motion..~ No meningismus. Resp: Clear to auscultation bilaterally Cardio: Regular rate and rhythm, no murmurs Abd: Soft, non tender, non distended. Normal bowel sounds. There is a kidney stent on the right abdomen. There is no surrounding erythema, discharge. Urine is draining into the bag which is clear and yellow. Skin: No petechiae or rashes Back: No midline or flank tenderness Ext: No cyanosis, or edema Neur: Awake and alert Psych: Normal Mood and Affect Procedures/MDM Patient presents with a history of nephrolithiasis, hydronephrosis and has a kidney stent which is draining in place. Dressings were changed per patient request. Patient presents for signs or symptoms of fever, tachycardia, signs of sepsis or additional complications. Patient was discharged home instructions to follow-up with urology or return for fevers, vomiting, new worsening symptoms. The patient was stable with no new complaints during the ER course. Clinically, there is no current evidence to suggest meningitis, sepsis, acute abdomen, pneumonia, acute coronary syndrome, pulmonary embolism, or any other emergent condition appearing to require further evaluation or hospitalization. The patient should certainly return for any new or worsening symptoms per the aftercare instructions. They should otherwise follow-up with her primary care doctor for reevaluation this week. Departure Diagnosis: Primary Impression: Encounter for wound re-check Condition: Stable Patient Instructions: Post Op Wound Check, Pain Additional Instructions: Return for fevers, vomiting, new worsening symptoms. Follow-up with urologist and primary doctor care doctor as scheduled. CONRADO GAINES MD December 29, 2016 15:08
== END 2016-12-29 16:29 | disposition home or self-care (01) ==
LOC: FTE 13:47
DX: Z48.01 Encounter for change or removal of surgical wound dressing (principal); F17.210 Nicotine dependence, cigarettes, uncomplicated; E11.9 Type 2 diabetes mellitus without complications
CPT/HCPCS: 99281

== ENCOUNTER 2017-01-16 00:41 | Emergency (ER) | payer SELFPAY ==
[~2017-01-16] VITALS: Ht 182.9 cm; Wt 81.8 kg
[2017-01-16 00:45] VITALS: Ht 182.9 cm; Wt 81.8 kg
== END 2017-01-16 01:40 | disposition left against medical advice (07) ==
LOC: E/R 00:41
DX: Z53.21 Procedure and treatment not carried out due to patient leaving prior to being seen by health care provider (principal)

== ENCOUNTER 2017-01-28 18:01 | Emergency (ER) | payer OTHER ==
[~2017-01-28] VITALS: Ht 182.9 cm; Wt 84.0 kg
[2017-01-28 18:03] VITALS: Ht 182.9 cm; Wt 84.0 kg
--- NOTE | 2017-01-28 19:17 | ERD ---
ER Documentation Chief Complaint Date/Time DATE: 01/28/17 TIME: 19:13 Chief Complaint Patient here for a wound recheck HPI Patient is a 61-year-old male with past medical history of HIV, hep C, osteomyelitis and diabetes type 2 and kidney stones who presents to the ED with dressing change to his renal stent nephrostomy procedure. Patient states that he had a it placed 1 year ago and is unsure of the name of the urologist however it was possibly at [facility]. He states that he is planning on having a procedure done in February however he would like his dressing change. He denies fever or chills. He denies drainage from the site. He denies urinary symptoms. He has no other complaints besides wanting to have a clean dressing placed over his wound. ROS All systems reviewed and are negative except as per history of present illness. Medications Home Meds Active Scripts Ondansetron (Ondansetron Odt) 4 Mg Tab.rapdis, 4 MG PO Q6H Y for NAUSEA AND/OR VOMITING, #10 TAB Prov:SWATI SINGH MD 09/22/16 Hydrocodone/Acetaminophen ([place] 10-325 Tablet) 1 Each Tablet, 1 TAB PO Q6H Y for PAIN, #12 TAB Prov:SWATI SINGH MD 09/22/16 Ondansetron Hcl* (Zofran*) 4 Mg Tablet, 4 MG PO Q6H for NAUSEA AND/OR VOMITING, #30 TAB Prov:LILA,RAZ C 09/21/16 Zolpidem Tartrate* (Ambien*) 5 Mg Tablet, 5 MG PO HS Y for INSOMNIA, #10 TAB Prov:ALETHEA SHARPNA C 09/21/16 Oxycodone HCl/Acetaminophen (Percocet 5-325 mg Tablet) 1 Each Tablet, 1 EACH PO Q6, #10 TAB Prov:LILARAZ C 09/21/16 Hydrocodone/Acetaminophen ([place] 5-325 Tablet) 1 Each Tablet, 1 EACH PO Q8, #10 TAB Prov:ROGER CONTEH DO 09/20/16 Ciprofloxacin Hcl* (Ciprofloxacin Hcl*) 500 Mg Tablet, 500 MG PO BID, #14 TAB Prov:ROGER CONTEH DO 09/20/16 Allergies Allergies: Coded Allergies: No Known Allergy (Unverified , 09/22/16) PMhx/Soc History of Surgery: Yes (Nephrostomy) Anesthesia Reaction: No Hx Neurological Disorder: No Hx Respiratory Disorders: No Hx Cardiac Disorders: No Hx Psychiatric Problems: No Hx Miscellaneous Medical Probl: Yes (Hx of Osteomyelitis, HIV, Renal Stones requiring nephrostomy, Hep C, DMII) Hx Alcohol Use: Yes Hx Substance Use: Yes (Hx of heroin, cocaine, crystal meth, and marijuana use. No longer using.) Hx Tobacco Use: Yes Smoking Status: Light tobacco smoker FmHx Family History: No coronary disease, No diabetes, No other Physical Exam Vitals Vital Signs Date Time Temp Pulse Resp B/P Pulse Ox O2 Delivery O2 Flow Rate FiO2 01/28/17 18:03 99.7 84 20 125/77 97 Physical Exam GENERAL: Well-developed, well-nourished female. Appears in no acute distress. HEAD: Normocephalic, atraumatic. NECK: Supple. No lymphadenopathy or thyromegaly. No meningismus. negative kernig. negative brudinski. LUNG: Clear to auscultation bilaterally. No rhonchi, wheezing, rales or coarse breath sounds. HEART: Regular rate and rhythm. No murmurs, rubs or gallops. NEUROLOGIC: Alert and oriented. Moving all four extremities. 5/5 strength in all extremities. Normal speech. Steady gait. SKIN: Normal color. Warm and dry. No rashes or lesions. Capillary refill < 2 seconds. no pus or drainage or surrounding erythema around right wound site. Procedures/MDM ER COURSE: I kept the patient and/or family informed of laboratory and diagnostic imaging results throughout the emergency room course. MEDICAL DECISION MAKING: This is a 61-year-old male who presents with dressing change to his renal stent nephrostomy procedure. Vital signs were reviewed. Patient is afebrile. Patient is not hypoxic. Patient is not toxic or ill-appearing. I consulted with my supervising physician agrees with my medical decision making. New dressing was placed without any complications. Patient is stable for outpatient therapy. Low suspicion for necrotizing fasciitis, SJS, toxic epidermal necrolysis, Kawasaki, erythema multiforme, gangrene, scarlet fever, meningococcemia, sepsis, anaphylaxis, sepsis, deep space infection, or foreign body. DISCHARGE: At this time, patient is stable for discharge and outpatient management with no new complaints during the ER course. Patient was sent home with instructions to follow-up with urologist. Patient will be discharged home with instructions to recheck for new or worsening symptoms such as fever, nausea, weakness, LOC and to follow up with primary care in the next 1-2 days. Patient was advised to return to the ER for any new or worsening symptoms. Plan was discussed and patient and/or family understands and agrees. Home instructions were given. Departure Diagnosis: Primary Impression: Dressing change Condition: Stable Patient Instructions: Dressing Change Referrals: [facility] BONNIE CARDENAS MD Additional Instructions: follow up with urologist Call your primary care doctor TOMORROW for an appointment during the next 1-2 days.See the doctor sooner or return here if your condition worsens before your appointment time. CASA VALE PA-C Jan 28, 2017 19:17
== END 2017-01-28 19:10 | disposition home or self-care (01) ==
LOC: FTE 18:01
DX: Z48.01 Encounter for change or removal of surgical wound dressing (principal); E11.9 Type 2 diabetes mellitus without complications; F17.210 Nicotine dependence, cigarettes, uncomplicated
CPT/HCPCS: 99281

== ENCOUNTER 2017-01-30 16:58 | Emergency (ER) | payer OTHER ==
[~2017-01-30] VITALS: Wt 80.0 kg
[2017-01-30] MEDS ORDERED: IBUPROFEN 800 MG TAB PO ONE (17:30)
[2017-01-30] MEDS ORDERED: IBUP-1542 PO (18:22)
--- NOTE | 2017-01-30 18:24 | RADRPT ---
PROCEDURE: XR Knee. CLINICAL INDICATION: Anterior knee pain TECHNIQUE: AP, lateral and tunnel views of the right knee were obtained. COMPARISON: None. FINDINGS: No fracture or osseous lesion is identified. There is no evidence for dislocation. Mineralization is within normal limits. Mild narrowing of the medial compartment and patellofemoral joint is prese nt. No evidence of effusion or soft tissue swelling is identified. RPTAT:HJJR IMPRESSION: Mild osteoarthrosis without acute osseous abnormality involving the right knee. Physician Bernadine Date Time Electronically viewed and signed by Physician Bernadine on 01/30/2017 18:24 /
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
== END 2017-01-30 18:46 | disposition home or self-care (01) ==
LOC: E/R 16:58
DX: M25.561 Pain in right knee (principal); E11.9 Type 2 diabetes mellitus without complications; Z87.891 Personal history of nicotine dependence
CPT/HCPCS: 73562; Z7502; Z7610

== ENCOUNTER 2017-02-09 00:48 | Emergency (ER) | payer OTHER ==
[~2017-02-09] VITALS: Ht 172.7 cm; Wt 86.0 kg
[~2017-02-09 00:48] MED LIST changes: +IBUP-1542 PO
[2017-02-09 01:03] VITALS: Ht 172.7 cm; Wt 86.0 kg
--- NOTE | 2017-02-09 02:13 | ERA ---
ER Documentation Chief Complaint Date/Time DATE: 02/09/17 TIME: 02:11 Chief Complaint Possible leaking urostomy tube HPI The patient is a 61-year-old male, presenting to the ER because of possible leakage of right nephrostomy tube that was inserted 2 days ago at [facility]. He was discharged earlier today from [facility] and was supposed to follow-up with his urologist tomorrow. He denies any trauma, denies fever, chills, neck pain, chest pain, abdominal pain, vomiting, dysuria, diarrhea. He had history of substance abuse Past medical history: HIV, hepatitis C, diabetes mellitus Past surgical history: History of right nephrostomy ROS All systems reviewed and are negative except as per history of present illness. Medications Home Meds Active Scripts Ibuprofen* (Motrin*) 600 Mg Tab, 600 MG PO Q8, #30 TAB Prov:BISHOP LANDERS MD 01/30/17 Ondansetron (Ondansetron Odt) 4 Mg Tab.rapdis, 4 MG PO Q6H Y for NAUSEA AND/OR VOMITING, #10 TAB Prov:SWATI SINGH MD 09/22/16 Hydrocodone/Acetaminophen ([place] 10-325 Tablet) 1 Each Tablet, 1 TAB PO Q6H Y for PAIN, #12 TAB Prov:SWATI SINGH MD 09/22/16 Ondansetron Hcl* (Zofran*) 4 Mg Tablet, 4 MG PO Q6H for NAUSEA AND/OR VOMITING, #30 TAB Prov:RAZ SHARP 09/21/16 Zolpidem Tartrate* (Ambien*) 5 Mg Tablet, 5 MG PO HS Y for INSOMNIA, #10 TAB Prov:RAZ SHARP C 09/21/16 Oxycodone HCl/Acetaminophen (Percocet 5-325 mg Tablet) 1 Each Tablet, 1 EACH PO Q6, #10 TAB Prov:RAZ SHARP C 09/21/16 Hydrocodone/Acetaminophen ([place] 5-325 Tablet) 1 Each Tablet, 1 EACH PO Q8, #10 TAB Prov:ROGER CONTEH DO 09/20/16 Ciprofloxacin Hcl* (Ciprofloxacin Hcl*) 500 Mg Tablet, 500 MG PO BID, #14 TAB Prov:ROGER CONTEH DO 09/20/16 Allergies Allergies: Coded Allergies: No Known Allergy (Unverified , 09/22/16) PMhx/Soc History of Surgery: Yes (Nephrostomy) Anesthesia Reaction: No Hx Neurological Disorder: No Hx Respiratory Disorders: No Hx Cardiac Disorders: No Hx Psychiatric Problems: No Hx Miscellaneous Medical Probl: Yes (Hx of Osteomyelitis, HIV, Renal Stones requiring nephrostomy, Hep C, DMII) Hx Alcohol Use: Yes Hx Substance Use: Yes (Hx of heroin, cocaine, crystal meth, and marijuana use. No longer using.) Hx Tobacco Use: Yes Physical Exam Vitals Vital Signs Date Time Temp Pulse Resp B/P Pulse Ox O2 Delivery O2 Flow Rate FiO2 02/09/17 01:03 99.3 131 20 180/106 98 Physical Exam Const: No acute distress. Head: Atraumatic. Eyes: Normal Conjunctiva. ENT: Normal External Ears, Nose and Mouth. Neck: Full range of motion. No meningismus. Resp: Clear to auscultation bilaterally. Cardio: Regular rate and rhythm. Abd: Soft, non distended, normal bowel sounds, non tender. Right nephrostomy site is without any discharge, the dressing is dried Skin: No petechiae or rashes. Back: No midline or flank tenderness. Ext: No cyanosis, or edema. Neur: Awake and alert. No focal deficit Psych: Normal Mood and Affect. Procedures/MDM MEDICAL MAKING DECISION: The patient is a 61-year-old male, presenting for postop dressing change. The differential diagnoses considered include but are not limited to cellulitis, abscess, obstruction of nephrostomy tube, pyelonephritis. He is stable for follow-up with his urologist as an outpatient Departure Diagnosis: Primary Impression: Dressing change Condition: Good Comments I discussed the findings with the patient. I advised the patient to follow-up with his urologist in about 1-2 days, sooner if needed and return if any concern. The patient's blood pressure was elevated (>120/80) but appears stable without evidence of hypertension emergency or urgency. The patient was counseled about the risks of hypertension and urged to pursue outpatient monitoring and therapy within a week with their primary care physician. VERONA DOSHI MD Feb 09, 2017 02:13
[2017-02-10] MEDS ORDERED: EPZI PO (06:39)
[2017-02-10] MEDS ORDERED: ABAC300T2 PO (06:39)
[2017-02-10] MEDS ORDERED: SULF1TAB31 PO (06:39)
[2017-02-10] MEDS ORDERED: DARU1TAB PO (06:39)
== END 2017-02-09 02:46 | disposition home or self-care (01) ==
LOC: E/R 00:48
DX: T83.038A Leakage of other urinary catheter, initial encounter (principal); E11.9 Type 2 diabetes mellitus without complications; F17.210 Nicotine dependence, cigarettes, uncomplicated; Y73.2 Prosthetic and other implants, materials and accessory gastroenterology and urology devices associated with adverse incidents
CPT/HCPCS: 99282

== ENCOUNTER → 2017-02-10 | Emergency (ER) | payer OTHER ==
[~2017-02-10] VITALS: Ht 182.9 cm; Wt 82.5 kg
[~2017-02-10] MED LIST changes: +ABAC300T2 PO; +DARU1TAB PO; +EPZI PO; +SULF1TAB31 PO
[2017-02-10 03:19] VITALS: Ht 182.9 cm; Wt 82.5 kg
--- NOTE | 2017-02-10 07:08 | ERD ---
ER Documentation Chief Complaint Date/Time DATE: 02/10/17 TIME: 06:45 Chief Complaint states nephrostomy tube got disconnected, c/o abd pain HPI 61-year-old male with a history of hepatitis C, HIV, polysubstance abuse and ureterolithiasis with hydronephrosis status post a right nephrostomy placement presents to the ED complaining of leakage from the tube and the tube becoming disconnected today. He wants it removed. He was seen this morning at 2 AM for similar complaints. He states he has no abdominal pain, flank pain, dysuria, hematuria, nausea or vomiting. No fevers or chills. He is very concerned that someone took his guitar. ROS All systems reviewed and are negative except as per history of present illness. Medications Home Meds Active Scripts Ibuprofen* (Motrin*) 600 Mg Tab, 600 MG PO Q8, #30 TAB Prov:BISHOP LANDERS MD 01/30/17 Reported Medications Sulfamethoxazole/Trimethoprim* (Bactrim Ds* Tablet) 1 Each Tablet, 1 TAB PO DAILY, TAB 02/10/17 Darunavir/Cobicistat (Prezcobix 800 mg-150 mg Tablet) 1 Each Tablet, 1 EACH PO, TAB 02/10/17 Abacavir/Lamivudine (EPZICOM) 1 Tab Tab, 1 TAB PO, TAB 02/10/17 Abacavir* (Abacavir*) 300 Mg Tablet, 300 MG PO BID, #60 TAB 02/10/17 Discontinued Scripts Ondansetron (Ondansetron Odt) 4 Mg Tab.rapdis, 4 MG PO Q6H Y for NAUSEA AND/OR VOMITING, #10 TAB Prov:SWATI SINGH MD 09/22/16 Hydrocodone/Acetaminophen ([place] 10-325 Tablet) 1 Each Tablet, 1 TAB PO Q6H Y for PAIN, #12 TAB Prov:SWATI SINGH MD 09/22/16 Ondansetron Hcl* (Zofran*) 4 Mg Tablet, 4 MG PO Q6H for NAUSEA AND/OR VOMITING, #30 TAB Prov:RAZ SHARP 09/21/16 Zolpidem Tartrate* (Ambien*) 5 Mg Tablet, 5 MG PO HS Y for INSOMNIA, #10 TAB Prov:RAZ SHARP 09/21/16 Oxycodone HCl/Acetaminophen (Percocet 5-325 mg Tablet) 1 Each Tablet, 1 EACH PO Q6, #10 TAB Prov:RAZ SHARP C 09/21/16 Hydrocodone/Acetaminophen ([place] 5-325 Tablet) 1 Each Tablet, 1 EACH PO Q8, #10 TAB Prov:ROGER CONTEH DO 09/20/16 Ciprofloxacin Hcl* (Ciprofloxacin Hcl*) 500 Mg Tablet, 500 MG PO BID, #14 TAB Prov:ROGER CONTEH DO 09/20/16 Allergies Allergies: Coded Allergies: No Known Allergy (Unverified , 02/10/17) PMhx/Soc Reviewed in chart. As per HPI History of Surgery: Yes (Nephrostomy) Anesthesia Reaction: No Hx Neurological Disorder: No Hx Respiratory Disorders: No Hx Cardiac Disorders: No Hx Psychiatric Problems: No Hx Miscellaneous Medical Probl: Yes (Hx of Osteomyelitis, HIV, Renal Stones requiring nephrostomy, Hep C, DMII) Hx Alcohol Use: Yes (occasionally) Hx Substance Use: Yes (Hx of heroin, cocaine, crystal meth, and marijuana use. No longer using.) Hx Tobacco Use: Yes (quit) Smoking Status: Former smoker FmHx Not relevant to presenting complaint, reviewed in chart Physical Exam Vitals Vital Signs Date Time Temp Pulse Resp B/P Pulse Ox O2 Delivery O2 Flow Rate FiO2 02/10/17 03:19 97.0 97 20 148/94 97 Physical Exam Const: Alert, anxious but in no acute distress. Head: Atraumatic Eyes: Normal Conjunctiva ENT: Normal External Ears, Nose and Mouth. Neck: Full range of motion. Nontender. Resp: Clear to auscultation bilaterally Cardio: Regular rate and rhythm, no murmurs Abd: Soft, non tender, non distended. Normal bowel sounds Skin: No petechiae or rashes Back: No midline or flank tenderness. Right nephrostomy tube in place. Nontender. No surrounding erythema, induration or drainage. Ext: No cyanosis, or edema Neur: Awake and alert Psych: Normal Mood and Affect Procedures/MDM DOCUMENTS REVIEWED: ED nurse, prior ED, prior records MEDICAL DECISION MAKIN-year-old male with a history of hepatitis C, HIV, polysubstance abuse and ureterolithiasis with hydronephrosis status post a right nephrostomy placement presents to the ED complaining of leakage from the tube and the tube becoming disconnected today. He is already on antibiotics and has no evidence of infection of the tube and was going to be reconnected to the drainage bag but the patient eloped. His major concern is loss of his guitar which was subsequently recovered but the patient had already left. We have no contact number and the guitar is being held by security. Counseled patient and family regarding diagnostic workup, diagnosis and need for followup. Understands to return to ED if symptoms recur, worsen or any other concerns. Departure Diagnosis: Primary Impression: Malfunction of nephrostomy tube Additional Impressions: Hydronephrosis Hydronephrosis type: unspecified Qualified Code: N13.30 - Hydronephrosis, unspecified hydronephrosis type History of nephrolithiasis HIV disease Hepatitis C Viral hepatitis chronicity: unspecified Hepatic coma status: without hepatic coma Qualified Code: B19.20 - Hepatitis C virus infection without hepatic coma, unspecified chronicity Condition: Stable (Eloped) SHIRLEY ALEXANDER MD Feb 10, 2017 07:08 SHIRLEY ALEXANDER MD Feb 10, 2017 07:08
== END | disposition home or self-care (01) ==
LOC: E/R 03:10
DX: T83.092A Other mechanical complication of nephrostomy catheter, initial encounter (principal); N13.30 Unspecified hydronephrosis; B20 Human immunodeficiency virus [HIV] disease; B19.20 Unspecified viral hepatitis C without hepatic coma; E11.9 Type 2 diabetes mellitus without complications; Y73.8 Miscellaneous gastroenterology and urology devices associated with adverse incidents, not elsewhere classified; Z87.448 Personal history of other diseases of urinary system; Z87.891 Personal history of nicotine dependence
CPT/HCPCS: 99282

== ENCOUNTER 2017-02-14 21:13 | Emergency (ER) | payer OTHER ==
[~2017-02-14] VITALS: Ht 172.7 cm; Wt 83.5 kg
[~2017-02-14 21:13] MED LIST changes: -CIPR500T4 PO; -HYDR-902 PO; -HYDR-906 PO; -ONDA4TAB14 PO; -ONDA4TAB8 PO; -OXYC-279 PO; -ZOLP5TAB PO
[2017-02-14 21:57] VITALS: Ht 172.7 cm; Wt 83.5 kg
--- NOTE | 2017-02-14 23:27 | ERD ---
ER Documentation Chief Complaint Date/Time DATE: 02/14/17 TIME: 23:25 Chief Complaint nephrostomy leaking since today HPI This is a 61-year-old male presents to the ER stating he was here to look for his guitar as he has lost it and thinks that he lost it here in the hospital. While he was here he noticed that his nephrostomy tube was leaking. Patient has a follow-up appointment with urologist 5 days from now. Patient denies any fevers or chills. Patient states that he noticed his nephrostomy tube was leaking because he had some urine on his shirt. Patient denies any pain at this time, he has been to 3 different hospital for similar complaint. ROS 12 point review of systems was done, all negative except per HPI. Medications Home Meds Active Scripts Ibuprofen* (Motrin*) 600 Mg Tab, 600 MG PO Q8, #30 TAB Prov:BISHOP LANDERS MD 01/30/17 Reported Medications Sulfamethoxazole/Trimethoprim* (Bactrim Ds* Tablet) 1 Each Tablet, 1 TAB PO DAILY, TAB 02/10/17 Darunavir/Cobicistat (Prezcobix 800 mg-150 mg Tablet) 1 Each Tablet, 1 EACH PO, TAB 02/10/17 Abacavir/Lamivudine (EPZICOM) 1 Tab Tab, 1 TAB PO, TAB 02/10/17 Abacavir* (Abacavir*) 300 Mg Tablet, 300 MG PO BID, #60 TAB 02/10/17 Discontinued Scripts Ondansetron (Ondansetron Odt) 4 Mg Tab.rapdis, 4 MG PO Q6H Y for NAUSEA AND/OR VOMITING, #10 TAB Prov:SWATI SINGH MD 09/22/16 Hydrocodone/Acetaminophen ([place] 10-325 Tablet) 1 Each Tablet, 1 TAB PO Q6H Y for PAIN, #12 TAB Prov:SWATI SINGH MD 09/22/16 Ondansetron Hcl* (Zofran*) 4 Mg Tablet, 4 MG PO Q6H for NAUSEA AND/OR VOMITING, #30 TAB Prov:RAZ SHARP 09/21/16 Zolpidem Tartrate* (Ambien*) 5 Mg Tablet, 5 MG PO HS Y for INSOMNIA, #10 TAB Prov:RAZ SHARP 09/21/16 Oxycodone HCl/Acetaminophen (Percocet 5-325 mg Tablet) 1 Each Tablet, 1 EACH PO Q6, #10 TAB Prov:RAZ SHARP C 09/21/16 Hydrocodone/Acetaminophen ([place] 5-325 Tablet) 1 Each Tablet, 1 EACH PO Q8, #10 TAB Prov:ROGER CONTEH DO 09/20/16 Ciprofloxacin Hcl* (Ciprofloxacin Hcl*) 500 Mg Tablet, 500 MG PO BID, #14 TAB Prov:ROGER CONTEH DO 09/20/16 Allergies Allergies: Coded Allergies: No Known Allergy (Unverified , 02/10/17) PMhx/Soc History of Surgery: Yes (Nephrostomy) Anesthesia Reaction: No Hx Neurological Disorder: No Hx Respiratory Disorders: No Hx Cardiac Disorders: No Hx Psychiatric Problems: No Hx Miscellaneous Medical Probl: Yes (Hx of Osteomyelitis, HIV, Renal Stones requiring nephrostomy, Hep C, DMII) Hx Alcohol Use: Yes (occasionally) Hx Substance Use: Yes (Hx of heroin, cocaine, crystal meth, and marijuana use. No longer using.) Hx Tobacco Use: Yes (quit) Smoking Status: Current every day smoker Physical Exam Vitals Vital Signs Date Time Temp Pulse Resp B/P Pulse Ox O2 Delivery O2 Flow Rate FiO2 02/14/17 21:57 98.2 81 18 153/94 100 Physical Exam GENERAL: The patient is well developed and appropriate for usual state of health , in no apparent distress. HEENT: Atraumatic. CHEST: Clear to auscultation bilaterally. There are no rales, wheezes or rhonchi. HEART: Regular rate and rhythm. No murmurs, clicks, rubs or gallops. ABDOMEN: Soft, nontender and nondistended. Good bowel sounds. No rebound or guarding. No gross peritonitis. No gross organomegaly or masses. No Ayon sign or McBurney point tenderness. Patient has a nephrostomy tube in place insertion site is not erythematous it is not swollen it is not tender to palpation and there is no discharge. Tube that connects to urine bag is leaking a little bit of urine. BACK: No midline or flank tenderness. Procedures/MDM I ordered a replacement tube for the patient's nephrostomy, however patient decided to elope. Departure Diagnosis: Primary Impression: Malfunction of nephrostomy tube Condition: Stable RAZ SHARP Feb 14, 2017 23:27
== END 2017-02-14 23:36 | disposition left against medical advice (07) ==
LOC: FTE 21:13 → E/R 23:36
DX: T83.092A Other mechanical complication of nephrostomy catheter, initial encounter (principal); F17.210 Nicotine dependence, cigarettes, uncomplicated; Y73.2 Prosthetic and other implants, materials and accessory gastroenterology and urology devices associated with adverse incidents
CPT/HCPCS: 99282

== ENCOUNTER 2017-02-20 21:09 | Emergency (ER) | END 2017-02-21 04:17 | disposition home or self-care (01) | DX: R51 Headache (principal); E11.9 Type 2 diabetes mellitus without complications; Z87.891 Personal history of nicotine dependence | CPT/HCPCS: 70450; Z7502; Z7610 ==

== ENCOUNTER 2017-03-27 12:47 | Emergency (ER) | payer OTHER ==
[~2017-03-27] VITALS: Ht 182.9 cm; Wt 84.0 kg
[~2017-03-27 12:47] MED LIST changes: +HYDR-902 PO
[2017-03-27 12:53] VITALS: Ht 182.9 cm; Wt 84.0 kg
[2017-03-27] MEDS ORDERED: ONDANSETRON 4 MG INJ IV STA (15:02)
[2017-03-27] MEDS ORDERED: SOD CHLORIDE 0.9% 1,000 ML IV STA (15:02)
[2017-03-27] MEDS ORDERED: morphine 4 MG/ML VIAL IV STA (15:02)
[2017-03-27 15:42] LABS: BASOPHILS % 0.5 % (0.0-2.0); EOSINOPHILS # 0.2 10^3/ul (0.0-0.5); EOSINOPHILS % 4.8 % (0.0-7.0); HEMATOCRIT 36.9 % (42.0-52.0); HEMOGLOBIN 12.1 g/dl (14.0-18.0); LYMPHOCYTES # 1.6 10^3/ul (0.8-2.9); LYMPHOCYTES % 36.6 % (15.0-51.0); MEAN CORPUSCULAR HGB CONC 32.8 g/dl (32.0-37.0); MEAN CORPUSCULAR VOLUME 91.3 fl (82.0-101.0); MEAN PLATELET VOLUME 10.6 fl (7.4-10.4); MONOCYTE # 0.5 10^3/ul (0.3-0.9); MONOCYTES % 11.4 % (0.0-11.0); NEUTROPHILS % 46.5 % (39.0-77.0); PLATELET COUNT 177 10^3/UL (140-415); RED BLOOD COUNT 4.04 10^6/ul (4.70-6.10); RED CELL DISTRIBUTION WIDTH 13.6 % (11.5-14.5); WHITE BLOOD COUNT 4.4 10^3/ul (4.8-10.8)
[2017-03-27] MEDS ORDERED: KETOROLAC 30 MG INJ IV STA (15:58)
[2017-03-27 16:07] LABS: ALBUMIN 4.3 g/dl (3.3-4.9); BILIRUBIN,INDIRECT 0.1 mg/dl (0-1.1); BILIRUBIN,TOTAL 0.1 mg/dl (0.2-1.3); CALCIUM 9.3 mg/dl (8.4-10.2); CREATININE 1.29 mg/dl (0.61-1.24); POTASSIUM 4.2 mmol/L (3.5-5.1); TOTAL PROTEIN 9.3 g/dl (6.1-8.1)
[2017-03-27 16:08] LABS: ALBUMIN/GLOBULIN RATIO 0.86
[2017-03-27 16:11] LABS: ADD UMIC YES; UR ASCORBIC ACID NEGATIVE (NEGATIVE); UR BACTERIA MODERATE /HPF (NONE SEEN); UR BILIRUBIN (Dip) NEGATIVE (NEGATIVE); UR BLOOD (Dip) 3+ mg/dL (NEGATIVE); UR CLARITY CLOUDY (CLEAR); UR COLOR YELLOW (YELLOW); UR GLUCOSE (Dip) NEGATIVE (NEGATIVE); UR KETONES (Dip) NEGATIVE (NEGATIVE); UR LEUKOCYTE ESTERASE (Dip) 3+ Leu/ul (NEGATIVE); UR NITRITE (Dip) POSITIVE (NEGATIVE); UR RBC > 182 /HPF (0-5); UR SPECIFIC GRAVITY (Dip) 1.017 (1.003-1.030); UR TOTAL PROTEIN (Dip) 2+ mg/dl (NEGATIVE); UR UROBILINOGEN (Dip) NEGATIVE (NEGATIVE); UR WBC CLUMPS FEW /HPF (NONE SEEN)
[2017-03-27] MEDS ORDERED: CEFEPIME 2GM/50 ML (PMX) 50 ML IVPB ONE (17:00)
--- NOTE | 2017-03-27 17:11 | RADRPT ---
PROCEDURE: CT Abdomen and Pelvis without contrast. CLINICAL INDICATION: Right-sided pain TECHNIQUE: CT of the abdomen and pelvis was performed on a multi-detector scanner without IV contr ast. Coronal and sagittal images were reformatted from the axial data set. One or more of the foll owing dose reduction techniques were used: automated exposure control, adjustment of the mA and/or k V according to patient size, use of iterative reconstruction technique. CTDI = 16.3 mGy. DLP = 873. 9 mGy-cm. COMPARISON: CT, 09/20/2016 FINDINGS: CT abdomen: The lung bases are clear. The heart size is normal, without pericardial effusion. Coronary arteria l calcifications are noted. Liver, gallbladder, biliary tree, pancreas, spleen and adrenal glands a re unremarkable. Right-sided percutaneous nephrostomy catheter and right ureteral stent are in plac e. There is mild right hydronephrosis. Extensive inflammatory stranding is seen adjacent to the ri ght renal pelvis and ureter. Nonobstructive right renal calculi are identified measuring up to 15 m m. Nonobstructive 5 mm calculus is seen within the left renal pelvis as well. There is no ureterol ithiasis or obstructive uropathy. The stomach is grossly unremarkable. The aorta is of normal caliber. Aortic vascular calcifications are present. There is no retroperit montiel lymphadenopathy. The dionte hepatis region is clear. CT pelvis: No bowel obstruction, free intraperitoneal air or abscess is identified. Scattered colonic divertic danny are seen without diverticulitis. There is no appendicitis or colitis. Small anterior midline u rinary bladder diverticulum is seen, possibly urachal remnant. Mild bladder wall thickening and garret cent inflammatory stranding are seen, concerning for cystitis. No pelvic mass, free fluid or lympha denopathy is identified. The surrounding osseous structures are remarkable for degenerative enthesopathy of the spine. No os teolytic or osteoblastic lesion is detected. IMPRESSION: 1. Right-sided percutaneous nephrostomy catheter and ureteral stent are in place. There is mild hy dronephrosis, along with extensive inflammatory stranding adjacent to right renal pelvis and ureter, similar in appearance to the prior CT. Nonobstructive right renal calculi are seen as well. 2. Urinary bladder wall appears thickened with mild adjacent inflammatory stranding, concerning for underlying cystitis. Anterior midline urinary bladder diverticulum is noted, possibly representing urachal remnant. 3. Nonobstructive left renal calculus is identified, without ureterolithiasis or obstructive uropat hy. 4. Coronary arterial and aortic atherosclerotic calcifications are present. 5. No mass or lymphadenopathy is identified. RPTAT: HDWR .Kodak De Souza MD, MD Date Time Electronically viewed and signed by .Kodak De Souza MD, on 03/27/2017 17:11 .R/
[2017-03-27 19:03] VITALS: BP 110/69; PULSE 102; RESP 16
[2017-03-27] MEDS ORDERED: NITR-58 PO (19:16)
[2017-03-27] MEDS ORDERED: CIPR500T4 PO (19:16)
[2017-03-27] MEDS ORDERED: HYDR-906 PO (19:18)
[2017-03-27] MEDS ORDERED: POLY17PO6 PO (19:19)
--- NOTE | 2017-03-27 19:32 | ERD ---
ER Documentation Chief Complaint Date/Time DATE: 03/27/17 TIME: 19:26 Chief Complaint pt bib family with c/o right sided abd pain, hx renal stent , surg in 8 day HPI 61-year-old male comes to emergency room complaining of right lower quadrant abdominal pain. He does not have flank pain. Does have a history of a renal stent. He has good urology follow-up and is scheduled for surgery for retrieval of the stent in 8 days. He has had no fevers and chills. Denies hematuria. ROS All systems reviewed and are negative except as per history of present illness. Medications Home Meds Active Scripts Polyethylene Glycol* (Miralax*) 17 Gm Powd.pack, 17 GM PO DAILY, #7 Prov:FLOR URBINA 03/27/17 Hydrocodone/Acetaminophen ([place] 5-325 Tablet) 1 Each Tablet, 1 EACH PO q5, #20 TAB Prov:CIARAFLOR 03/27/17 Nitrofurantoin Monohyd Macrocr* (Macrobid*) 100 Mg Capsr, 100 MG PO BID, #20 CAP Prov:CIARAFLOR 03/27/17 Ciprofloxacin Hcl* (Ciprofloxacin Hcl*) 500 Mg Tablet, 500 MG PO BID, #28 TAB Prov:FLOR URBINA 03/27/17 Hydrocodone/Acetaminophen ([place] 10-325 Tablet) 1 Each Tablet, 1 TAB PO Q6H Y for PAIN, #20 TAB Prov:RAQUEL CLEARY 02/21/17 Ibuprofen* (Motrin*) 600 Mg Tab, 600 MG PO Q8, #30 TAB Prov:BISHOP LANDERS MD 01/30/17 Reported Medications Sulfamethoxazole/Trimethoprim* (Bactrim Ds* Tablet) 1 Each Tablet, 1 TAB PO DAILY, TAB 02/10/17 Darunavir/Cobicistat (Prezcobix 800 mg-150 mg Tablet) 1 Each Tablet, 1 EACH PO, TAB 02/10/17 Abacavir/Lamivudine (EPZICOM) 1 Tab Tab, 1 TAB PO, TAB 02/10/17 Abacavir* (Abacavir*) 300 Mg Tablet, 300 MG PO BID, #60 TAB 02/10/17 Allergies Allergies: Coded Allergies: No Known Allergy (Unverified , 02/21/17) PMhx/Soc History of Surgery: Yes (Nephrostomy, foot surgery) Anesthesia Reaction: No Hx Neurological Disorder: No Hx Respiratory Disorders: No Hx Cardiac Disorders: No Hx Psychiatric Problems: No Hx Miscellaneous Medical Probl: Yes (Hx of Osteomyelitis, HIV, Renal Stones requiring nephrostomy, Hep C, DMII) Hx Alcohol Use: Yes (occasionally) Hx Substance Use: Yes (Hx of heroin, cocaine, crystal meth, and marijuana use. No longer using.) Hx Tobacco Use: Yes (quit) Smoking Status: Current every day smoker Physical Exam Vitals Vital Signs Date Time Temp Pulse Resp B/P Pulse Ox O2 Delivery O2 Flow Rate FiO2 03/27/17 19:03 102 16 110/69 100 Room Air 03/27/17 12:53 98.3 84 16 136/82 98 Physical Exam Const: [] No distress, active, sitting at edge of bed, talkative Head: Atraumatic Eyes: Normal Conjunctiva ENT: Normal External Ears, Nose and Mouth. Neck: Full range of motion..~ No meningismus. Resp: Clear to auscultation bilaterally Cardio: Regular rate and rhythm, no murmurs Abd: Soft, right mid lower quadrant tenderness without guarding or rebound, non distended. Normal bowel sounds Skin: No petechiae or rashes Back: No midline or flank tenderness Ext: No cyanosis, or edema Neur: Awake and alert and oriented 3, no focal deficits Psych: Normal Mood and Affect Result Diagram: 03/27/17 1530 03/27/17 1530 Results 24 hrs Laboratory Tests Test 03/27/17 15:30 White Blood Count 4.410^3/ul Red Blood Count 4.0410^6/ul Hemoglobin 12.1g/dl Hematocrit 36.9% Mean Corpuscular Volume 91.3fl Mean Corpuscular Hemoglobin 30.0pg Mean Corpuscular Hemoglobin Concent 32.8g/dl Red Cell Distribution Width 13.6% Platelet Count 64795^3/UL Mean Platelet Volume 10.6fl Neutrophils % 46.5% Lymphocytes % 36.6% Monocytes % 11.4% Eosinophils % 4.8% Basophils % 0.5% Nucleated Red Blood Cells % 0.0/100WBC Neutrophils # (Manual) 2.010^3/ul Lymphocytes # 1.610^3/ul Monocytes # 0.510^3/ul Eosinophils # 0.210^3/ul Basophils # 0.010^3/ul Nucleated Red Blood Cells # 0.010^3/ul Urine Color YELLOW Urine Clarity CLOUDY Urine pH 5.0 Urine Specific [place] 1.017 Urine Ketones NEGATIVEmg/dL Urine Nitrite POSITIVEmg/dL Urine Bilirubin NEGATIVEmg/dL Urine Urobilinogen NEGATIVEmg/dL Urine Leukocyte Esterase 3+Meghna/ul Urine Microscopic RBC > 182/HPF Urine Microscopic WBC > 182/HPF Urine Bacteria MODERATE/HPF Urine Hemoglobin 3+mg/dL Urine Glucose NEGATIVEmg/dL Urine Total Protein 2+mg/dl Sodium Level 139mmol/L Potassium Level 4.2mmol/L Chloride Level 100mmol/L Carbon Dioxide Level 24mmol/L Anion Gap 19 Blood Urea Nitrogen 36mg/dl Creatinine 1.29mg/dl Glucose Level 101mg/dl Calcium Level 9.3mg/dl Total Bilirubin 0.1mg/dl Direct Bilirubin 0.00mg/dl Indirect Bilirubin 0.1mg/dl Aspartate Amino Transf (AST/SGOT) 95IU/L Alanine Aminotransferase (ALT/SGPT) 89IU/L Alkaline Phosphatase 104IU/L Total Protein 9.3g/dl Albumin 4.3g/dl Globulin 5.00g/dl Albumin/Globulin Ratio 0.86 Lipase 75U/L Current Medications Medications (Trade) Dose Ordered Sig/Singh Route PRN Reason Start Time Stop Time Status Last Admin Dose Admin Sodium Chloride (NS) 1,000 ml @ 1,000 mls/hr Q1H STAT IV 03/27/17 15:02 03/27/17 16:01 DC 03/27/17 15:49 Morphine Sulfate (morphine) 4 mg ONCE STAT IV 03/27/17 15:02 03/27/17 15:06 DC 03/27/17 15:49 Ondansetron HCl (Zofran Inj) 4 mg ONCE STAT IV 03/27/17 15:02 03/27/17 15:06 DC 03/27/17 15:49 Ketorolac Tromethamine 30 mg 30 mg ONCE STAT IV 03/27/17 15:58 03/27/17 16:00 DC 03/27/17 16:49 Cefepime HCl (Maxipime 2gm/50 ml (Pmx)) 50 ml @ 100 mls/hr ONCE ONCE IVPB 03/27/17 17:00 03/27/17 17:29 DC 03/27/17 17:28 Procedures/MDM Complicated UTI by having stones and ureteral stent. No signs of sepsis or systemic infection. He was given morphine and Zofran for his pain which reduced the pain immediately. CT showing fat stranding similar to prior CAT scan. I spoke with the patient's urologist team at [facility]. There were able to access his culture results and found that the bacteria are sensitive to Cipro and Macrobid. They recommend follow-up as normal for surgery but do ask him to come in a few days early to obtain culture results. I have given their office # 2 the patient instructed to be should call tomorrow to try to set up a urine culture. He was hydrated with normal saline and given morphine. Patient states that he has been kind of constipated lately which may be a reason for the pain as well. I am to discharge with MiraLAX, Cipro, Macrobid, [place]. Return precautions to the ER strict for any fevers or any concerning symptoms. CT abdomen pelvis interpretation: Right-sided nephrostomy catheter and stent in place, mild hydronephrosis. Fat stranding around kidney as well as mild stranding on urinary bladder with thickened wall. Departure Diagnosis: Primary Impression: Complicated UTI (urinary tract infection) Additional Impressions: Acute abdominal pain Renal insufficiency Condition: Stable Patient Instructions: Understanding Urinary Tract Infections (UTIs) Additional Instructions: Call your primary care doctor TOMORROW for an appointment during the next 1-2 days.See the doctor sooner or return here if your condition worsens before your appointment time. FLOR URBINA DO Mar 27, 2017 19:32
== END 2017-03-27 19:30 | disposition home or self-care (01) ==
LOC: E/R 12:47
DX: N39.0 Urinary tract infection, site not specified (principal); N28.9 Disorder of kidney and ureter, unspecified; E11.9 Type 2 diabetes mellitus without complications; F17.210 Nicotine dependence, cigarettes, uncomplicated
CPT/HCPCS: 36415; 74176; 80053; 81001; 83690; 85025; 96374; 96375; J0692; J1885; J2270; J2405; J7030; Z7502

== ENCOUNTER 2017-04-27 16:47 | Emergency (ER) | payer SELFPAY ==
[~2017-04-27] VITALS: Ht 172.7 cm; Wt 87.0 kg
[~2017-04-27 16:47] MED LIST changes: +CIPR500T4 PO; +HYDR-906 PO; +NITR-58 PO; +POLY17PO6 PO
[2017-04-27 16:52] VITALS: Ht 172.7 cm; Wt 87.0 kg
== END 2017-04-27 17:35 | disposition left against medical advice (07) ==
LOC: E/R 16:47
DX: Z53.21 Procedure and treatment not carried out due to patient leaving prior to being seen by health care provider (principal)

== ENCOUNTER 2017-04-29 10:04 | Emergency (ER) | payer OTHER ==
[~2017-04-29] VITALS: Ht 182.9 cm; Wt 84.0 kg
[2017-04-29 10:05] VITALS: Ht 182.9 cm; Wt 84.0 kg
[2017-04-29] MEDS ORDERED: SOD CHLORIDE 0.9% 500 ML IV STA (10:31)
[2017-04-29] MEDS ORDERED: ONDANSETRON 4 MG INJ IV STA (10:31)
[2017-04-29] MEDS ORDERED: morphine 4 MG/ML VIAL IV STA (10:31)
--- NOTE | 2017-04-29 10:38 | ERD ---
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 The patient states that since then he has been having right-sided flank and right lower quadrant abdominal pain that is moderate and persistent. He states that he has completed his course of antibiotics. He denies any fevers or chills. He is describing mild dysuria but no hematuria. He denies any migratory pain, no back pain. He has not followed up with the urologist at this point. ROS All systems reviewed and are negative except as per history of present illness. Medications Home Meds Active Scripts Ondansetron (Ondansetron Odt) 4 Mg Tab.rapdis, 4 MG PO Q6H Y for NAUSEA AND/OR VOMITING, #10 TAB Prov:SWATI SINGH MD 04/29/17 Hydrocodone/Acetaminophen ([place] 10-325 Tablet) 1 Each Tablet, 1 TAB PO Q6H Y for PAIN, #7 TAB Prov:SWATI SINGH MD 04/29/17 Cephalexin* (Keflex*) 500 Mg Capsule, 500 MG PO QID for 7 Days, CAP Prov:SWATI SINGH MD 04/29/17 Reported Medications Sulfamethoxazole/Trimethoprim* (Bactrim Ds* Tablet) 1 Each Tablet, 1 TAB PO DAILY, TAB 02/10/17 Darunavir/Cobicistat (Prezcobix 800 mg-150 mg Tablet) 1 Each Tablet, 1 EACH PO, TAB 02/10/17 Abacavir* (Abacavir*) 300 Mg Tablet, 300 MG PO BID, #60 TAB 02/10/17 Discontinued Reported Medications Abacavir/Lamivudine (EPZICOM) 1 Tab Tab, 1 TAB PO, TAB 02/10/17 Discontinued Scripts Polyethylene Glycol* (Miralax*) 17 Gm Powd.pack, 17 GM PO DAILY, #7 Prov:FLOR URBINA DO 03/27/17 Hydrocodone/Acetaminophen ([place] 5-325 Tablet) 1 Each Tablet, 1 EACH PO q5, #20 TAB Prov:FLOR URBINA DO 03/27/17 Nitrofurantoin Monohyd Macrocr* (Macrobid*) 100 Mg Capsr, 100 MG PO BID, #20 CAP Prov:FLOR URBINA DO 03/27/17 Ciprofloxacin Hcl* (Ciprofloxacin Hcl*) 500 Mg Tablet, 500 MG PO BID, #28 TAB Prov:FLOR URBINA DO 03/27/17 Hydrocodone/Acetaminophen ([place] 10-325 Tablet) 1 Each Tablet, 1 TAB PO Q6H Y for PAIN, #20 TAB Prov:RAQUEL CLEARY 02/21/17 Ibuprofen* (Motrin*) 600 Mg Tab, 600 MG PO Q8, #30 TAB Prov:BISHOP LANDERS MD 01/30/17 Allergies Allergies: Coded Allergies: No Known Allergy (Unverified , 04/29/17) PMhx/Soc History of Surgery: Yes (Nephrostomy, foot surgery) Anesthesia Reaction: No Hx Neurological Disorder: No Hx Respiratory Disorders: No Hx Cardiac Disorders: No Hx Psychiatric Problems: No Hx Miscellaneous Medical Probl: Yes (Hx of Osteomyelitis, HIV, Renal Stones requiring nephrostomy, Hep C, DMII) Hx Alcohol Use: Yes (occasionally) Hx Substance Use: Yes (Hx of heroin, cocaine, crystal meth, and marijuana use. No longer using.) Hx Tobacco Use: Yes (quit) FmHx Family History: No diabetes Physical Exam Vitals Vital Signs Date Time Temp Pulse Resp B/P Pulse Ox O2 Delivery O2 Flow Rate FiO2 04/29/17 10:05 97.8 75 18 101/66 98 Physical Exam General: Well developed, well nourished, no acute distress Head: Normocephalic, atraumatic. Eyes: Pupils equally reactive, EOM intact ENT: Moist mucous membranes Neck: Supple, no lymphadenopathy Respiratory: Lungs clear bilaterally, no distress Cardiovascular: RRR, no murmurs, rubs, or gallops Abdominal: Soft, No tenderness to McBurney's point, no pulsatile mass, no inguinal hernia : Deferred MSK: No edema, no unilateral swelling, 5/5 strength Neurologic: Alert and oriented, moving all extremities, normal speech, no focal weakness, no cerebellar signs Skin: No rash Psych: Normal mood Result Diagram: 04/29/17 1102 04/29/17 1102 Results 24 hrs Laboratory Tests Test 04/29/17 11:02 White Blood Count 4.310^3/ul Red Blood Count 4.0010^6/ul Hemoglobin 12.1g/dl Hematocrit 36.0% Mean Corpuscular Volume 90.0fl Mean Corpuscular Hemoglobin 30.3pg Mean Corpuscular Hemoglobin Concent 33.6g/dl Red Cell Distribution Width 12.5% Platelet Count 77417^3/UL Mean Platelet Volume 10.4fl Neutrophils % 57.4% Lymphocytes % 25.9% Monocytes % 12.7% Eosinophils % 3.3% Basophils % 0.5% Nucleated Red Blood Cells % 0.0/100WBC Neutrophils # 2.410^3/ul Lymphocytes # 1.110^3/ul Monocytes # 0.510^3/ul Eosinophils # 0.110^3/ul Basophils # 0.010^3/ul Nucleated Red Blood Cells # 0.010^3/ul Urine Color YELLOW Urine Clarity CLOUDY Urine pH 6.0 Urine Specific [place] 1.015 Urine Ketones NEGATIVEmg/dL Urine Nitrite NEGATIVEmg/dL Urine Bilirubin NEGATIVEmg/dL Urine Urobilinogen 2+mg/dL Urine Leukocyte Esterase 3+Meghna/ul Urine Microscopic RBC > 182/HPF Urine Microscopic WBC > 182/HPF Urine Squamous Epithelial Cells FEW/HPF Urine Bacteria FEW/HPF Urine Mucus FEW/HPF Urine Yeast (Budding) FEW/HPF Urine Hemoglobin 3+mg/dL Urine Glucose NEGATIVEmg/dL Urine Total Protein 2+mg/dl Sodium Level 141mmol/L Potassium Level 4.7mmol/L Chloride Level 109mmol/L Carbon Dioxide Level 24mmol/L Anion Gap 13 Blood Urea Nitrogen 29mg/dl Creatinine 1.19mg/dl Glucose Level 104mg/dl Calcium Level 9.5mg/dl Total Bilirubin 0.1mg/dl Direct Bilirubin 0.00mg/dl Indirect Bilirubin 0.1mg/dl Aspartate Amino Transf (AST/SGOT) 123IU/L Alanine Aminotransferase (ALT/SGPT) 84IU/L Alkaline Phosphatase 96IU/L Total Protein 8.3g/dl Albumin 3.8g/dl Globulin 4.50g/dl Albumin/Globulin Ratio 0.84 Lipase 95U/L Current Medications Medications (Trade) Dose Ordered Sig/Singh Route PRN Reason Start Time Stop Time Status Last Admin Dose Admin Sodium Chloride (NS) 500 ml @ 500 mls/hr Q1H STAT IV 04/29/17 10:31 9/17/17 11:30 DC 04/29/17 11:13 Morphine Sulfate (morphine) 4 mg ONCE STAT IV 04/29/17 10:31 04/29/17 10:33 DC 04/29/17 11:13 Ondansetron HCl 4 mg 4 mg ONCE STAT IV 04/29/17 10:31 04/29/17 10:33 DC 04/29/17 11:13 Ceftriaxone Sodium (Rocephin) 50 ml @ 100 mls/hr ONCE ONCE IVPB 04/29/17 13:00 04/29/17 13:29 DC 04/29/17 13:31 Procedures/MDM EKG, MONITORS, & DIAGNOSTIC IMAGING: xr abd IMPRESSION: 1. Left ureteral stent in satisfactory position. 2. Calculi in the mid to lower right kidney. 3. Mild degenerative changes of the spine. RPTAT: QQ US Renal: Pending LAB INTERPRETATION: Urinary tract infection MEDICAL DECISION MAKING: The patient presents with persistent pain status post fragmentation of a right- sided kidney stone. His symptoms are likely consistent with persistent renal colic or ureteral colic. The patient is resting comfortably without signs of infection. He does have HIV and AIDS but is no evidence of nosocomial infection or opportunistic infection at this time. The patient will benefit from laboratory testing. Given known history of stone I do not believe he would benefit from CT imaging, x-ray or KUB might be reasonable. I will reach out to the patient's urologist as well. The patient likely requires follow-up at this point. ER COURSE: The patient's KUB shows satisfactory placement of stent. A stone within the kidney, no ureteral stones. Ultrasound pending. I initially was able to contact Juan neurosurgeon for Dr. Reid. He states that they can follow-up with the patient tomorrow in clinic. However, attempted multiple times to reach them again based on the urinalysis showing UTI. Multiple times were made without callback. I was able speak to Dr. Tariq, our on -call urologist. He feels outpatient management would be appropriate. He recommends discharge with antibiotics and follow-up at [facility] tomorrow. The patient was informed. The patient was also advised of return precautions including fevers or worsening symptoms given his immune compromised state. The patient verbalizes understanding. I kept the patient and/or family informed of laboratory and diagnostic imaging results throughout the emergency room course. DISPOSITION PLAN: We discussed follow up with the patient's primary care doctor within 24 to 48 hours as needed. We also discussed return to the emergency room for worsening symptoms or worsening condition. Outpatient referral: [facility] urology with Dr. Reid Discharge Medications: Keflex, Navarro, Zofran Departure Diagnosis: Primary Impression: AIDS Additional Impression: Urinary tract infection Urinary tract infection type: acute cystitis Hematuria presence: without hematuria Qualified Code: N30.00 - Acute cystitis without hematuria Condition: Stable SWATI SINGH MD Apr 29, 2017 10:38
[2017-04-29 11:38] LABS: BASOPHILS % 0.5 % (0.0-2.0); EOSINOPHILS # 0.1 10^3/ul (0.0-0.5); EOSINOPHILS % 3.3 % (0.0-7.0); HEMOGLOBIN 12.1 g/dl (14.0-18.0); LYMPHOCYTES # 1.1 10^3/ul (0.8-2.9); LYMPHOCYTES % 25.9 % (15.0-51.0); MEAN CORPUSCULAR HEMOGLOBIN 30.3 pg (29.0-33.0); MEAN CORPUSCULAR HGB CONC 33.6 g/dl (32.0-37.0); MEAN PLATELET VOLUME 10.4 fl (7.4-10.4); MONOCYTE # 0.5 10^3/ul (0.3-0.9); MONOCYTES % 12.7 % (0.0-11.0); NEUTROPHIL # 2.4 10^3/ul (1.6-7.5); NEUTROPHILS % 57.4 % (39.0-77.0); PLATELET COUNT 218 10^3/UL (140-415); RED CELL DISTRIBUTION WIDTH 12.5 % (11.5-14.5); WHITE BLOOD COUNT 4.3 10^3/ul (4.8-10.8)
[2017-04-29 11:55] LABS: ALBUMIN 3.8 g/dl (3.3-4.9); ALBUMIN/GLOBULIN RATIO 0.84; BILIRUBIN,INDIRECT 0.1 mg/dl (0-1.1); BILIRUBIN,TOTAL 0.1 mg/dl (0.2-1.3); CALCIUM 9.5 mg/dl (8.4-10.2); CREATININE 1.19 mg/dl (0.61-1.24); POTASSIUM 4.7 mmol/L (3.5-5.1); TOTAL PROTEIN 8.3 g/dl (6.1-8.1)
[2017-04-29 11:56] LABS: ADD UMIC YES; UR ASCORBIC ACID NEGATIVE (NEGATIVE); UR BACTERIA FEW /HPF (NONE SEEN); UR BILIRUBIN (Dip) NEGATIVE (NEGATIVE); UR BLOOD (Dip) 3+ mg/dL (NEGATIVE); UR BUDDING YEAST FEW /HPF (NONE SEEN); UR CLARITY CLOUDY (CLEAR); UR COLOR YELLOW (YELLOW); UR GLUCOSE (Dip) NEGATIVE (NEGATIVE); UR KETONES (Dip) NEGATIVE (NEGATIVE); UR LEUKOCYTE ESTERASE (Dip) 3+ Leu/ul (NEGATIVE); UR MUCUS FEW /HPF (NONE SEEN); UR NITRITE (Dip) NEGATIVE (NEGATIVE); UR RBC > 182 /HPF (0-5); UR SPECIFIC GRAVITY (Dip) 1.015 (1.003-1.030); UR SQUAMOUS EPITHELIAL CELL FEW /HPF (FEW); UR TOTAL PROTEIN (Dip) 2+ mg/dl (NEGATIVE); UR UROBILINOGEN (Dip) 2+ mg/dL (NEGATIVE)
--- NOTE | 2017-04-29 12:38 | RADRPT ---
PROCEDURE: XR Abdomen. CLINICAL INDICATION: Abdomen pain. TECHNIQUE: AP supine abdomen x-ray. COMPARISON: CT scan of the abdomen and pelvis dated 03/27/2017. FINDINGS: The bowel gas pattern is normal with no evidence of obstruction. There is a right double pigtail ureteral stent in satisfactory position. Calculi are present in the mid to lower right kidney as seen on prior CT scan. There are mild degenerative changes of the spine. IMPRESSION: 1. Left ureteral stent in satisfactory position. 2. Calculi in the mid to lower right kidney. 3. Mild degenerative changes of the spine. RPTAT: QQ .Freddie Gomez MD, MD Date Time Electronically viewed and signed by .Freddie Gomez MD, MD on 04/29/2017 12:37 .R/
[2017-04-29] MEDS ORDERED: CEFTRIAXONE 1 GM/50 ML (PMX) 50 ML IVPB ONE (13:00)
[2017-04-29] MEDS ORDERED: CEPH-443 PO (14:14)
[2017-04-29] MEDS ORDERED: ONDA4TAB14 PO (14:14)
[2017-04-29] MEDS ORDERED: HYDR-902 PO (14:14)
[2017-04-29 14:39] VITALS: BP 105/68; PULSE 76; RESP 16; TEMP 98.1
--- NOTE | 2017-04-29 14:57 | RADRPT ---
PROCEDURE: Renal US. CLINICAL INDICATION: History of urinary tract calculi. TECHNIQUE: Multiple sonographic images of the kidneys and urinary bladder were obtained. The imag es were reviewed on a PACS workstation. COMPARISON: CT scan of the abdomen and pelvis dated 03/27/2017. Abdomen radiograph dated 5. FINDINGS: The right kidney measures 11.7 x 5.1 cm. The left kidney measures 10.1 x 5.5 cm. There is a calculus in the lower right kidney measuring 2.2 x 1.5 x 1.3 cm. There is mild right hydr onephrosis. There is no right renal mass. There is a benign left renal sinus cyst measuring 2.6 cm in maximal dimension. There is no left chen l calculus, solid mass, or hydronephrosis. Renal parenchymal thickness is normal bilaterally. Echogenicity is normal bilaterally. The perirenal regions are normal with no fluid collection or mass. The urinary bladder is unremarkable. IMPRESSION: 1. Nonobstructing calculus in the lower right kidney measuring 2.2 cm. 2. Mild right hydronephrosis. 3. Benign left renal cyst. 4. Otherwise unremarkable study. RPTAT: QQ .Freddie Gomez MD, MD Date Time Electronically viewed and signed by .Freddie Gomez MD, on 04/29/2017 14:56 .R/
== END 2017-04-29 14:47 | disposition home or self-care (01) ==
LOC: E/R 10:04
DX: B20 Human immunodeficiency virus [HIV] disease (principal); N30.00 Acute cystitis without hematuria; E11.9 Type 2 diabetes mellitus without complications; Z87.891 Personal history of nicotine dependence
CPT/HCPCS: 36415; 74000; 76775; 80053; 81001; 83690; 85025; 87086; 96374; 96375; J0696; J2270; J2405; J7040; Z7502

== ENCOUNTER 2017-05-17 11:28 | Emergency (ER) | payer OTHER ==
[~2017-05-17] VITALS: Ht 182.9 cm; Wt 86.0 kg
[~2017-05-17 11:28] MED LIST changes: +CEPH-443 PO; -CIPR500T4 PO; -EPZI PO; -HYDR-906 PO; -IBUP-1542 PO; -NITR-58 PO; +ONDA4TAB14 PO; -POLY17PO6 PO
[2017-05-17 11:30] VITALS: Ht 182.9 cm; Wt 86.0 kg
--- NOTE | 2017-05-17 12:37 | RADRPT ---
PROCEDURE: XR Chest. CLINICAL INDICATION: Cough TECHNIQUE: Single portable view of the chest was obtained. COMPARISON: None. FINDINGS: Normal cardiomediastinal silhouette. The lungs are clear. No pleural effusion or pneumothorax. IMPRESSION: No acute cardiopulmonary disease. RPTAT:AAJJ Physician Jeff Date Time Electronically viewed and signed by Pancho Camacho Physician on 05/17/2017 12:37 /
[2017-05-17] MEDS ORDERED: MED4DP PO (12:52)
[2017-05-17] MEDS ORDERED: ALBU8.5H3 INH (12:53)
[2017-05-17] MEDS ORDERED: GUAI-637 PO (12:53)
--- NOTE | 2017-05-17 13:00 | ERD ---
ER Documentation Chief Complaint Date/Time DATE: 05/17/17 TIME: 12:57 Chief Complaint cough, chest congestion. weakness HPI This is a 61-year-old male presents to the ER with a cough, chest congestion and chills for the last 6 days. He has not had any fevers. Cough is dry and constant. Patient is HIV positive, and is currently taking his medications for HIV. Patient admits to body aches. He denies any chest pain or shortness of breath. ROS 12 point review of systems was done, all negative except per HPI. Medications Home Meds Active Scripts Hydrocodone/Acetaminophen ([place]land 5-325 Tablet) 1 Each Tablet, 1 TAB PO Q6H Y for PAIN, #7 TAB Prov:RAZ SHARP 05/17/17 Guaifenesin* (Robitussin*) 100 Mg/5 Ml Syrup, 200 MG PO Q4H Y for COUGH for 5 Days, ML Prov:RAZ SHARP 05/17/17 Albuterol Sulfate* (Proair HFA*) 8.5 Gm Hfa.aer.ad, 2 PUFF INH Q4, #1 INHALER Prov:RAZ SHARP 05/17/17 Methylprednisolone* (Medrol* DOSE PACK) 4 Mg/Dose-Pack Tab.ds.pk, 4 MG PO . DIRECTED for 6 Days, PACKET Prov:RAZ SHARP 05/17/17 Ondansetron (Ondansetron Odt) 4 Mg Tab.rapdis, 4 MG PO Q6H Y for NAUSEA AND/OR VOMITING, #10 TAB Prov:SWATI SINGH MD 04/29/17 Hydrocodone/Acetaminophen ([place] 10-325 Tablet) 1 Each Tablet, 1 TAB PO Q6H Y for PAIN, #7 TAB Prov:SWATI SINGH MD 04/29/17 Cephalexin* (Keflex*) 500 Mg Capsule, 500 MG PO QID for 7 Days, CAP Prov:SWATI SINGH MD 04/29/17 Reported Medications Sulfamethoxazole/Trimethoprim* (Bactrim Ds* Tablet) 1 Each Tablet, 1 TAB PO DAILY, TAB 02/10/17 Darunavir/Cobicistat (Prezcobix 800 mg-150 mg Tablet) 1 Each Tablet, 1 EACH PO, TAB 02/10/17 Abacavir* (Abacavir*) 300 Mg Tablet, 300 MG PO BID, #60 TAB 02/10/17 Allergies Allergies: Coded Allergies: No Known Allergy (Unverified , 05/17/17) PMhx/Soc History of Surgery: Yes (Nephrostomy, foot surgery) Anesthesia Reaction: No Hx Neurological Disorder: No Hx Respiratory Disorders: No Hx Cardiac Disorders: No Hx Psychiatric Problems: No Hx Miscellaneous Medical Probl: Yes (Hx of Osteomyelitis, HIV, Renal Stones requiring nephrostomy, Hep C, DM) Hx Alcohol Use: Yes (occasionally) Hx Substance Use: Yes (Hx of heroin, cocaine, crystal meth, and marijuana use. No longer using.) Hx Tobacco Use: Yes (quit) Smoking Status: Former smoker Physical Exam Vitals Vital Signs Date Time Temp Pulse Resp B/P Pulse Ox O2 Delivery O2 Flow Rate FiO2 05/17/17 11:30 97.2 68 18 133/82 98 Physical Exam GENERAL: The patient is well-developed, well-nourished, in no acute distress. NECK: Cervical spine is non tender with no step off. Supple, no nuchal rigidity HEENT: Atraumatic. Pupils equal, round and reactive to light. Extraocular muscles are grossly intact. Conjunctivae pink, no discharge. Bilateral tympanic membranes are clear with no evidence of erythema, effusion or dulling of the light reflex. Tonsilar erythema with no exudates or uvular deviation. Clear rhinorrhea. RESPIRATORY: Clear to auscultation bilaterally. There are no rales, wheezes or rhonchi. HEART: Regular rate and rhythm. No murmurs, clicks, rubs or gallops. EXTREMITIES: No clubbing or cyanosis. Full range of motion. Grossly neurovascularly intact. NEUROLOGIC: Alert and oriented. Cranial nerves II through XII are intact. SKIN: There is no rash. The skin is warm and dry. Results 24 hrs Current Medications Medications (Trade) Dose Ordered Sig/Singh Route PRN Reason Start Time Stop Time Status Last Admin Dose Admin Acetaminophen/ Hydrocodone Bitart ([place] (5/325)) 1 tab ONCE ONCE PO 05/17/17 13:30 05/17/17 13:31 05/17/17 13:11 [place] [id number] Radiology Main Line: [phone] DIAGNOSTIC IMAGING REPORT Patient: YUNIOR SALAS : 1955 Age: 61 Sex: M MR #: [id number] DOS: 05/17/17 0000 Ordering MD: RAZ SHARP PA-C Location: [facility] Room/Bed: PROCEDURE: XR Chest. CLINICAL INDICATION: Cough TECHNIQUE: Single portable view of the chest was obtained. COMPARISON: None. FINDINGS: Normal cardiomediastinal silhouette. The lungs are clear. No pleural effusion or pneumothorax. IMPRESSION: No acute cardiopulmonary disease. RPTAT:AAJJ Pancho Camacho Physician Date Time Electronically viewed and signed by Pancho Camacho Physician on 05/17/2017 12 :37 MH/ CC: RAZ SHARP Procedures/MDM Upon discharge patient states he had chest pain, therefore EKG was done [address] elevation no T-wave inversion read by Dr. Driver, patient also requested [place]land for his chronic pain. I checked cares, and he only had one prescription, I did give him a short course of [place]. Differential diagnosis includes but is not limited to; Viral URI, allergic rhinitis, bronchitis, pertussis,pneumonia. This is likely viral in etiology. Clinical suspicion for pneumonia is low as patient appears well, is not hypoxic or in any respiratory distress. Additionally, patients physical examination is benign. Plan was discussed with patient they understand and agree. Patient needs to follow up with PCP in 1-2 days or return to ER sooner if symptoms worsen. Departure Diagnosis: Primary Impression: Bronchitis Condition: Stable Patient Instructions: Bronchitis, No Antibiotic (Adult) Additional Instructions: Call your primary care doctor TOMORROW for an appointment during the next 1-2 days.See the doctor sooner or return here if your condition worsens before your appointment time. RAZ SHARP May 17, 2017 13:00
[2017-05-17] MEDS ORDERED: HYDR-906 PO (13:17)
[2017-05-17] MEDS ORDERED: HYDROCODONE/APAP (5/325) TAB PO ONE (13:30)
== END 2017-05-17 13:25 | disposition home or self-care (01) ==
LOC: FTE 11:28
DX: J40 Bronchitis, not specified as acute or chronic (principal); E11.9 Type 2 diabetes mellitus without complications; R07.9 Chest pain, unspecified; Z87.891 Personal history of nicotine dependence
CPT/HCPCS: 71010; 93005; Z7502; Z7610